=== PATIENT | female | born 1975 | race Caucasian/White ===

== ENCOUNTER 2019-07-12 07:47 | Emergency (ER) | payer SELFPAY ==
[2019-07-12] MEDS ORDERED: NA CHLORIDE 0.9% 1,000 ML ONE (08:15)
[2019-07-12] MEDS ORDERED: ONDANSETRON 4 MG/2 ML VIAL ONE (08:31)
[2019-07-12 08:54] LABS: Absolute Lymphocytes (CBC) 2.2 K/uL (0.7-4.9); Basophils % 1.2 % (0-1.3); Hematocrit 32.6 % (36.0-45.0); Lymphocytes % 46.2 % (15.3-44.8); MPV 8.8 fL (7.6-11.3); RBC Red Blood Cell Count 4.47 M/uL (3.86-4.86)
[2019-07-12 08:57] LABS: Protime INR 0.94
[2019-07-12 09:08] LABS: Urine Blood NEGATIVE (NEG); Urine Glucose NEGATIVE (NEG); Urine Protein NEGATIVE (NEG); Urine pH 6.5 (5.0-7.0)
--- NOTE | 2019-07-12 09:08 | RAD REPORT ---
EXAM DESCRIPTION: CT - Head Brain Wo Cont - 07/12/2019 9:01 am CLINICAL HISTORY: Confused;Seizure Headache, drowsiness COMPARISON: No comparisons TECHNIQUE: All CT scans are performed using dose optimization technique as appropriate and may inclu de automated exposure control or mA/KV adjustment according to patient size. FINDINGS: No intracranial hemorrhage, hydrocephalus or extra-axial fluid collection.No areas of brai n edema or evidence of midline shift. The paranasal sinuses and mastoids are clear. The calvarium is intact. IMPRESSION: No acute intracranial abnormality.
[2019-07-12 09:13] LABS: ALT/SGPT 21 U/L (12-78); AST/SGOT 25 U/L (15-37); Albumin 3.5 g/dL (3.4-5.0); Alkaline Phosphatase 91 U/L (45-117); Amylase Level 55 U/L (25-115); BUN Blood Urea Nitrogen 5 mg/dL (7-18); Bicarbonate 26 mmol/L (21-32); Bilirubin Direct < 0.1 mg/dL (0-0.2); Bilirubin Total 0.2 mg/dL (0.2-1.0); CKMB Creatine Kinase MB < 1.0 ng/mL (0.3-3.6); Creatine Phosphokinase 232 U/L (26-192); Glucose Level 96 mg/dL (74-106); Lipase 172 U/L (73-393); Potassium 3.3 mmol/L (3.5-5.1); Protein, Total 7.5 g/dL (6.4-8.2); Sodium Level 144 mmol/L (136-145); Troponin (Emerg Dept Use Only) < 0.02 ng/mL (0.0-0.045)
[2019-07-12 09:17] LABS: Urine Bacteria <20 /HPF (<20); Urine Culture Reflex Order NOT NEEDED; Urine RBC <5 /HPF (NONE SEEN); Urine Urothelial Cells <5 /HPF (NONE SEEN)
[2019-07-12 09:25] LABS: Barbiturates NEGATIVE (NEGATIVE); Benzodiazepines POSITIVE (NEGATIVE); Cocaine NEGATIVE (NEGATIVE); METHAMPHETAM NEGATIVE (NEGATIVE); Methadone NEGATIVE (NEGATIVE); Opiates NEGATIVE (NEGATIVE); Phencyclidine NEGATIVE (NEGATIVE); THC Cannibis NEGATIVE (NEGATIVE)
--- NOTE | 2019-07-12 09:41 | RAD REPORT ---
EXAM DESCRIPTION: RAD - Chest Single View - 07/12/2019 9:35 am CLINICAL HISTORY: Cough;SOB Chest pain. COMPARISON: No comparisons FINDINGS: Portable technique limits examination quality. The lungs are grossly clear. The heart is normal in size. No displaced fractures. IMPRESSION: No acute intrathoracic process suspected.
[2019-07-12] MEDS ORDERED: HYDROCODONE/APAP 7.5/325 MG TAB ONE (10:12)
[2019-07-12 10:51] LABS: Anisocytosis 3+; Blood Morphology Comment NOTED (NOT SEEN); Hypochromasia 1+; Ovalocytes 1+; Platelet Estimate ADEQ
--- NOTE | 2019-07-12 11:19 | ER ---
Nurse's Notes [facility] Name: Anali Coronado Age: 43 yrs Sex: Female : 1975 Arrival Date: 07/12/2019 Time: 07:53 Bed 15 Private MD: Diagnosis: Alcohol abuse;Alcohol abuse with intoxication;Epilepsy and recurrent seizures Presentation: 07/11 07:54 Chief complaint: EMS states: Witnessed seizure lasting approx 30 seconds, then another hb during transit to ED. Pt reports productive cough, SOB, and fever x 3 days. TMAX 101. Coronavirus screen: Surgical mask placed on patient. Patient moved to private room, placed in contact and droplet isolation with eye protection until further assessment. Patient reports a cough. Patient reports shortness of breath or difficulty breathing. Patient reports a measured and/or subjective temperature greater than 100.4F. Patient reports travel on a cruise ship or to a country [facility] currently lists as an affected area. Patient denies contact with known and/or suspected case of COVID-19. mask placed on patient, Dr. Kirkland notified. Ebola Screen: No symptoms or risks identified at this time. Initial Sepsis Screen: Does the patient meet any 2 criteria? HR > 90 bpm. No. Patient's initial sepsis screen is negative. Does the patient have a suspected source of infection?. Risk Assessment: Do you want to hurt yourself or someone else? Patient reports no desire to harm self or others. Onset of symptoms was July 10, 2019. 07:54 Method Of Arrival: EMS: [facility] hb 07:54 Acuity: SCOTTY 3 hb Historical: - Allergies: 08:02 No Known Allergies; hb - Home Meds: 08:02 Omeprazole Oral [Active]; Digoxin Oral [Active]; Albuterol Inhl [Active]; hb - PMHx: 08:02 Lupus; hb - Immunization history:: Adult Immunizations up to date. - Social history:: Smoking status: Patient denies any tobacco usage or history of. Screenin:00 Abuse screen: Denies threats or abuse. Nutritional screening: No deficits noted. em Tuberculosis screening: No symptoms or risk factors identified. Fall Risk None identified. Assessment: 08:00 General: Appears in no apparent distress. comfortable, well groomed, well developed, em well nourished, Behavior is cooperative, crying, Reports fever for 2-3 days, reports returning back from [place] about 1 week ago, reports she thought it was allergies, also reports she started having seizures after returning, denies hx of seizures, reports cough, shortness of breath, and fever, EMS reports witnessing seizure for about 30 seconds. Pain: Pain: Complains of pain in left side of forehead and left cheek Pain currently is 8 out of 10 on a pain scale. Neuro: Level of Consciousness is awake, alert, obeys commands, Oriented to person, place, time, situation, Appropriate for age. Cardiovascular: Rhythm is sinus rhythm. Respiratory: Reports shortness of breath at rest cough that is Airway is patent Respiratory effort is even, unlabored, Respiratory pattern is regular, symmetrical, Breath sounds are diminished bilaterally. Onset: The symptoms/episode began/occurred 3 days ago. GI: Abdomen is round non-distended, Reports diarrhea, nausea. Derm: Skin is intact, is healthy with good turgor, Skin is pink, warm \T\ dry. Wound noted left side of forehead and left yazdanism and left cheek Wound is abrasions that have scabbed noted, bruising noted to right shoulder and right hip. Musculoskeletal: Capillary refill < 3 seconds, Range of motion: intact in all extremities. 10:11 Reassessment: Patient appears in no apparent distress at this time. request pain em medication for lupus, Dr. Kirkland notified. 11:30 Reassessment: Patient appears in no apparent distress at this time. pt used [employer] ride em assist to get home. Vital Signs: 07:54 BP 138 / 94; Pulse 102; Resp 18; Temp 98(O); Pulse Ox 100% ; Weight 79.38 kg; Height 5 hb ft. 9 in. (175.26 cm); Pain 8/10; 08:41 BP 106 / 82; Pulse 91; Resp 18; Pulse Ox 99% on R/A; Pain 8/10; em 10:28 BP 128 / 90; Pulse 84; Resp 12; Pulse Ox 100% on R/A; em 07:54 Body Mass Index 25.84 (79.38 kg, 175.26 cm) hb ED Course: 07:53 Patient arrived in ED. hb 07:55 Candelario Kirkland MD is Attending Physician. kdr 08:01 Triage completed. hb 08:03 Arm band placed on. hb 08:04 Narciso Alarcon, RN is Primary Nurse. em 08:25 Patient has correct armband on for positive identification. Placed in gown. Bed in low em position. Call light in reach. Side rails up X2. rotary bar operator on. Pulse ox on. NIBP on. 09:06 CT Head Brain wo Cont In Process Unspecified. EDMS 09:36 Chest Single View XRAY In Process Unspecified. EDMS 10:18 IV discontinued, intact, bleeding controlled, Pressure dressing applied. dh3 10:20 Inserted saline lock: 22 gauge in left antecubital area, using aseptic technique. Blood dh3 collected. 10:36 Digoxin Sent. dh3 10:36 ETOH Level Sent. dh3 12:15 No provider procedures requiring assistance completed. IV discontinued, intact, em bleeding controlled, No redness/swelling at site. Pressure dressing applied. Administered Medications: 08:40 Drug: NS 0.9% 1000 ml Route: IV; Rate: 1 bolus; Site: right wrist; em 12:13 Follow up: IV Status: Completed infusion; IV Intake: 1000ml em 08:40 Drug: Zofran (Ondansetron) 4 mg Route: IVP; Site: right wrist; em 10:00 Follow up: Response: No adverse reaction; Marked relief of symptoms; Nausea is decreasedem 10:23 Drug: [place] (7.5 mg-325 mg) 1 tabs Route: PO; em 11:00 Follow up: Response: No adverse reaction; Marked relief of symptoms em Intake: 12:13 IV: 1000ml; Total: 1000ml. em Outcome: 11:18 Discharge ordered by . [facility] 12:15 Discharged to home ambulatory. em 12:15 Condition: good 12:15 Discharge instructions given to patient, Instructed on discharge instructions, follow up and referral plans. medication usage, Demonstrated understanding of instructions, follow-up care, medications, Prescriptions given X 1. 12:19 Patient left the ED. em Signatures: Dispatcher [employer] Candelario Bro MD MD [facility] Narciso Alarcon, RN RN Mercedez Juárez RN RN Andria Ferguson 3
--- NOTE | 2019-07-12 11:19 | EDPHYS ---
Physician Documentation [facility] Name: Anali Coronado Age: 43 yrs Sex: Female : 1975 Arrival Date: 07/12/2019 Time: 07:53 Bed 15 Private MD: ED Physician Candelario Kirkland HPI: 07/11 08:26 This 43 yrs old Female presents to ER via EMS with complaints of Seizure, Flu kdr Symptoms. 08:26 The patient presents with a history of multiple seizures, an unknown number, Apparently kdr last week the patient started to have seizures after returning from [place]. She states that she has had productive cough and SOB. She has not had seizures before. Today, she had several apparent seizures at home and then in route to the hospital with EMS. EMS witnessed on seizure at home and then once in route to the ED. They lasted about 30 seconds and then the patient was mildly postictal. The patient also c/o pain all over. Character of seizure(s): Loss of consciousness: the patient experienced loss of consciousness, Motor activity: generalized, Incontinence: none, Apnea: the patient did not experience apnea. Seizure onset: just prior to arrival, today. Context: the seizure(s) was witnessed, by EMS personnel, occurred at home. Seizure Hx: the patient has no previous seizure history. Associated injury: Head/face: forehead, left ear, left cheek, left anabaptist, left side of forehead and left zygomatic area, abrasion. EMS care: none. Current symptoms: Other than abrasion to face, no obvious injuries. The patient appears mildly uncomfortable and is c/o generalized myalgia. The patient has not experienced similar symptoms in the past. The patient has not recently seen a physician. Historical: - Allergies: 08:02 No Known Allergies; hb - Home Meds: 08:02 Omeprazole Oral [Active]; Digoxin Oral [Active]; Albuterol Inhl [Active]; hb - PMHx: 08:02 Lupus; hb - Immunization history:: Adult Immunizations up to date. - Social history:: Smoking status: Patient denies any tobacco usage or history of. ROS: 08:26 Constitutional: Negative for fever, chills, and weight loss, Eyes: Negative for injury, kdr pain, redness, and discharge, ENT: Negative for injury, pain, and discharge, Neck: Negative for injury, pain, and swelling, Cardiovascular: Negative for chest pain, palpitations, and edema, Abdomen/GI: Negative for abdominal pain, nausea, vomiting, diarrhea, and constipation. 08:26 Respiratory: Positive for cough, with green sputum, dyspnea on exertion, shortness of breath, Negative for hemoptysis, orthopnea, pleurisy, wheezing. 08:26 Skin: Positive for abrasion(s), of the left side of forehead, left anabaptist, left zygomatic area and left cheek. 08:26 MS/Extremity: Negative for injury and deformity, Neuro: Negative for headache, kdr weakness, numbness, tingling, and seizure activity. Psych: Negative for depression, anxiety, suicide ideation, homicidal ideation, and hallucinations, Allergy/Immunology: Negative for hives, rash, and allergies, Endocrine: Negative for neck swelling, polydipsia, polyuria, polyphagia, and marked weight changes, Hematologic/Lymphatic: Negative for swollen nodes, abnormal bleeding, and unusual bruising. 08:26 Neuro: Positive for altered mental status, seizure activity, weakness. Exam: 08:26 Constitutional: This is a well developed, well nourished patient who is awake, alert, kdr and in mild distress. Head/Face: Normocephalic, atraumatic. Eyes: Pupils equal round and reactive to light, extra-ocular motions intact. Lids and lashes normal. Conjunctiva and sclera are non-icteric and not injected. Cornea within normal limits. Periorbital areas with no swelling, redness, or edema. Neck: Trachea midline, no thyromegaly or masses palpated, and no cervical lymphadenopathy. Supple, full range of motion without nuchal rigidity, or vertebral point tenderness. No Meningismus. Chest/axilla: Normal chest wall appearance and motion. Nontender with no deformity. No lesions are appreciated. Cardiovascular: Regular rate and rhythm with a normal S1 and S2. No gallops, murmurs, or rubs. Normal PMI, no JVD. No pulse deficits. Respiratory: Lungs have equal breath sounds bilaterally, clear to auscultation and percussion. No rales, rhonchi or wheezes noted. No increased work of breathing, no retractions or nasal flaring. Abdomen/GI: Soft, non-tender, with normal bowel sounds. No distension or tympany. No guarding or rebound. No evidence of tenderness throughout. Back: No spinal tenderness. No costovertebral tenderness. Full range of motion. MS/ Extremity: Pulses equal, no cyanosis. Neurovascular intact. Full, normal range of motion. Neuro: Awake and alert, GCS 15, oriented to person, place, time, and situation. Cranial nerves II-XII grossly intact. Motor strength 5/5 in all extremities. Sensory grossly intact. Cerebellar exam normal. Normal gait. Psych: Awake, alert, with orientation to person, place and time. Behavior, mood, and affect are within normal limits. Vital Signs: 07:54 BP 138 / 94; Pulse 102; Resp 18; Temp 98(O); Pulse Ox 100% ; Weight 79.38 kg; Height 5 hb ft. 9 in. (175.26 cm); Pain 8/10; 08:41 BP 106 / 82; Pulse 91; Resp 18; Pulse Ox 99% on R/A; Pain 8/10; em 10:28 BP 128 / 90; Pulse 84; Resp 12; Pulse Ox 100% on R/A; em 07:54 Body Mass Index 25.84 (79.38 kg, 175.26 cm) hb MDM: 08:26 Data reviewed: vital signs, nurses notes, lab test result(s), EKG, radiologic studies. kdr Counseling: I had a detailed discussion with the patient and/or guardian regarding: the historical points, exam findings, and any diagnostic results supporting the discharge/admit diagnosis, lab results, radiology results. 11:18 Patient medically screened. [facility] 07/11 08:10 Order name: Amylase, Serum; Complete Time: 09:59 kdr 07/11 08:10 Order name: Basic Metabolic Panel; Complete Time: 09:59 kdr 07/11 08:10 Order name: Blood Culture Adult (2) kdr 07/11 08:10 Order name: CBC with Diff; Complete Time: 11:15 kdr 07/11 08:10 Order name: Ckmb; Complete Time: 09:59 kdr 07/11 08:10 Order name: CPK; Complete Time: 09:59 kdr 07/11 08:10 Order name: Lactate; Complete Time: 09:59 kdr 07/11 08:10 Order name: LFT's; Complete Time: 09:59 kdr 07/11 08:10 Order name: Lipase; Complete Time: 09:59 kdr 07/11 08:10 Order name: Procalcitonin; Complete Time: 09:59 kdr 07/11 08:10 Order name: Protime (+inr); Complete Time: 09:59 kdr 07/11 08:10 Order name: Ptt, Activated; Complete Time: 09:59 kdr 07/11 08:10 Order name: Troponin (emerg Dept Use Only); Complete Time: 09:59 kdr 07/11 08:10 Order name: Urine Microscopic Only; Complete Time: 09:59 kdr 07/11 08:10 Order name: CT Head Brain wo Cont; Complete Time: 09:59 kdr 07/11 08:10 Order name: Chest Single View XRAY; Complete Time: 09:59 kdr 07/11 08:10 Order name: COVID-19; Complete Time: 10:18 kdr 07/11 08:10 Order name: Flu; Complete Time: 09:59 kdr 07/11 08:10 Order name: Strep; Complete Time: 09:59 kdr 07/11 09:03 Order name: UDS; Complete Time: 09:59 em 07/11 09:03 Order name: Urine Dipstick--Ancillary (enter results); Complete Time: 09:59 eb 07/11 09:06 Order name: Throat Culture EDMS 07/11 09:10 Order name: Urine --Ancillary (enter results); Complete Time: 10:18 eb 07/11 09:23 Order name: ETOH Level; Complete Time: 10:47 kdr 07/11 10:02 Order name: Digoxin; Complete Time: 11:15 kdr 07/11 10:43 Order name: Diet Regular; Complete Time: 10:43 dh3 07/11 10:51 Order name: Manual Differential; Complete Time: 11:15 EDMS 07/11 08:10 Order name: Accucheck; Complete Time: 08:59 kdr 07/11 08:10 Order name: Cardiac monitoring; Complete Time: 08:59 kdr 07/11 08:10 Order name: IV Saline Lock - Large Bore; Complete Time: 08:59 kdr 07/11 08:10 Order name: Labs collected and sent; Complete Time: 08:59 kdr 07/11 08:10 Order name: O2 Per Protocol; Complete Time: 08:27 kdr 07/11 08:10 Order name: O2 Sat Monitoring; Complete Time: 08:27 [facility] 07/11 08:10 Order name: Urine Dipstick-Ancillary (obtain specimen); Complete Time: 08:58 [facility] 07/11 08:10 Order name: Droplet/Contact Precautions; Complete Time: 08:27 [facility] 07/11 08:10 Order name: Labs collected and sent; Complete Time: 08:56 [facility] 07/11 08:10 Order name: [facility] [phone]/ ; Complete Time: 08:56 [facility] Administered Medications: 08:40 Drug: NS 0.9% 1000 ml Route: IV; Rate: 1 bolus; Site: right wrist; em 12:13 Follow up: IV Status: Completed infusion; IV Intake: 1000ml em 08:40 Drug: Zofran (Ondansetron) 4 mg Route: IVP; Site: right wrist; em 10:00 Follow up: Response: No adverse reaction; Marked relief of symptoms; Nausea is decreasedem 10:23 Drug: [place] (7.5 mg-325 mg) 1 tabs Route: PO; em 11:00 Follow up: Response: No adverse reaction; Marked relief of symptoms em Disposition: 07/12/19 11:18 Discharged to Home. Impression: Alcohol abuse, Alcohol abuse with intoxication, Epilepsy and recurrent seizures. - Condition is Stable. - Discharge Instructions: Substance Use Disorder, Alcohol Intoxication, [id number], Seizure, Adult, [id number], What You Need to Know About Alcohol Abuse and Dependence, Youth, COVID-19. - Prescriptions for librium - take 1 tablet by ORAL route every 6-8 hours As needed; 20 tablet. - Medication Reconciliation Form, Thank You Letter form. - Follow up: Private Physician; When: 1 - 2 days; Reason: If symptoms return, Further diagnostic work-up, Recheck today's complaints, Continuance of care, Re-evaluation by your physician. - Problem is new. - Symptoms have improved. Signatures: Dispatcher [employer] Candelario Bro MD MD [facility] Narciso Alarcon RN RN Mercedez Juárez RN RN Corrections: (The following items were deleted from the chart) 12:19 11:18 07/12/2019 11:18 Discharged to Home. Impression: Alcohol abuse; Alcohol abuse em with intoxication; Epilepsy and recurrent seizures. Condition is Stable. Forms are Medication Reconciliation Form, Thank You Letter, Antibiotic Education, Prescription Opioid Use. Follow up: Private Physician; When: 1 - 2 days; Reason: If symptoms return, Further diagnostic work-up, Recheck today's complaints, Continuance of care, Re-evaluation by your physician. Problem is new. Symptoms have improved. kdr
[2019-07-12 12:31] VITALS: TEMP 98
[2019-07-12 12:34] VITALS: BP 128/90; O2SAT 100
== END 2019-07-12 12:19 | disposition home or self-care (01) ==
LOC: ER 07:47
DX: F10.129 Alcohol abuse with intoxication, unspecified (principal)
CPT/HCPCS: 36415; 70450; 71045; 80048; 80076; 80162; 80307; 80320; 81003; 81015; 81025; 82150; 82550; 82553; 83605; 83690; 84145; 84484; 85025; 85610; 85730; 87040; 87070; 87081; 87804; 96361; 96374; 99284; J2405; J7030; U0002

== ENCOUNTER 2019-07-22 05:23 | Emergency (ER) | payer SELFPAY ==
[2019-07-22] MEDS ORDERED: NA CHLORIDE 0.9% 2,000 ML ONE (05:51)
[2019-07-22] MEDS ORDERED: D50W 25 GM/50 ML SYRINGE/VIAL IV ONE (06:43)
[2019-07-22 06:59] LABS: Urine Blood NEGATIVE (NEG); Urine Glucose NEGATIVE (NEG); Urine Protein NEGATIVE (NEG); Urine pH 6.5 (5.0-7.0)
[2019-07-22 07:05] LABS: Protime INR 1.04
[2019-07-22 07:07] LABS: Absolute Lymphocytes (CBC) 1.3 K/uL (0.7-4.9); Basophils % 0.9 % (0-1.3); Hematocrit 31.4 % (36.0-45.0); Lymphocytes % 41.1 % (15.3-44.8); MPV 7.7 fL (7.6-11.3); RBC Red Blood Cell Count 4.32 M/uL (3.86-4.86)
[2019-07-22] MEDS ORDERED: FENTANYL CITR 100 MCG/2 ML ONE (07:14)
[2019-07-22 07:15] LABS: ALT/SGPT 19 U/L (12-78); AST/SGOT 27 U/L (15-37); Albumin 3.1 g/dL (3.4-5.0); Alkaline Phosphatase 86 U/L (45-117); BUN Blood Urea Nitrogen 5 mg/dL (7-18); Bicarbonate 24 mmol/L (21-32); Bilirubin Direct 0.2 mg/dL (0-0.2); Bilirubin Total 0.4 mg/dL (0.2-1.0); Ferritin 11.8 ng/mL (8-388); Glucose Level 84 mg/dL (74-106); Lipase 148 U/L (73-393); Potassium 3.1 mmol/L (3.5-5.1); Protein, Total 6.9 g/dL (6.4-8.2); Sodium Level 143 mmol/L (136-145); Troponin (Emerg Dept Use Only) < 0.02 ng/mL (0.0-0.045)
[2019-07-22 07:20] LABS: C-Reactive Protein < 2.90 mg/L (<3.00)
[2019-07-22 07:30] LABS: Urine Bacteria <20 /HPF (<20); Urine Culture Reflex Order NOT NEEDED; Urine RBC <5 /HPF (NONE SEEN)
[2019-07-22] MEDS ORDERED: D5 0.9 NS 1,000 ML IV ONE (07:56)
[2019-07-22] MEDS ORDERED: KCL 20 MEQ/100 mL IVPB 20 MEQ/100 ML BAG IV ONE (07:56)
[2019-07-22] MEDS ORDERED: ENOXAPARIN 40 MG/0.4 ML SQ ONE (07:56)
[2019-07-22 08:47] LABS: Anisocytosis 2+; Blood Morphology Comment NOTED (NOT SEEN); Macrocytosis 1+; Platelet Estimate ADEQ; Urine White Blood Cell Casts OK
--- NOTE | 2019-07-22 08:52 | RAD REPORT ---
EXAM DESCRIPTION: CT - Chest For Pe Angio - 07/22/2019 8:13 am CLINICAL HISTORY: Cough COMPARISON: None. TECHNIQUE: Dynamically enhanced axial 3 mm thick images of the chest were obtained during administra tion of <100> mL Isovue 370 IV contrast. Coronal and oblique reconstruction images were generated and reviewed. Exam utilizes a protocol for optimal evaluation of pulmonary arterial tree. Maximum intensity projections 3D imaging was utilized All CT scans are performed using dose optimization technique as appropriate and may include automated exposure control or mA/KV adjustment according to patient size. FINDINGS: A pulmonary embolus is not seen. A thoracic aortic aneurysm is not noted. A pleural effusion is not seen. A pericardial effusion is not seen. A lung consolidation is not present. Postsurgical changes involve the stomach. The wall of the distal esophagus appears thickened IMPRESSION: Negative for a pulmonary embolism. Wall of the distal esophagus appears thickened which may indicate inflammation
[2019-07-22] MEDS ORDERED: chlordiazePOXIDE HCl 25 MG CAP ONE (09:12)
[2019-07-22] MEDS ORDERED: PANTOPRAZOLE 40 MG INJ ONE (09:13)
--- NOTE | 2019-07-22 09:26 | ER ---
Nurse's Notes [facility] Name: Anali Coronado Age: 43 yrs Sex: Female : 1975 Arrival Date: 07/22/2019 Time: 05:25 Bed 8 Private MD: Diagnosis: Hypoglycemia, unspecified;Hypokalemia;Alcohol abuse with intoxication Presentation: 07/21 05:31 Chief complaint: EMS states: HURTING ALL OVER. SHE WAS SEEN HERE A WEEK AGO. DID NOT rv FEEL BETTER. ALSO COMPLAINING OF CHEST PAIN AND SOB, DESCRIBED ACHING PAIN. Coronavirus screen: Surgical mask placed on patient. Patient moved to private room, placed in contact and droplet isolation with eye protection until further assessment. Patient reports a cough. Patient reports shortness of breath or difficulty breathing. Patient reports a measured and/or subjective temperature greater than 100.4F. Patient reports travel on a cruise ship or to a country the [facility] currently lists as an affected area. Ebola Screen: No symptoms or risks identified at this time. Initial Sepsis Screen: Does the patient meet any 2 criteria? HR > 90 bpm. Does the patient have a suspected source of infection? Yes: Productive cough/pneumonia. Risk Assessment:. Risk Assessment: Do you want to hurt yourself or someone else? Patient reports no desire to harm self or others. Onset of symptoms was July 20, 2019 at 08:00. 05:31 Method Of Arrival: EMS: [facility] 05:31 Acuity: SCOTTY 3 rv Triage Assessment: 05:35 General: Appears ill, Behavior is calm, cooperative. Pain: Complains of pain in ALL rv OVER. EENT: No signs and/or symptoms were reported regarding the EENT system. Neuro: Level of Consciousness is awake, alert, obeys commands, Oriented to person, place, time, situation. Cardiovascular: Patient's skin is warm and dry. Chest pain is described as diffuse, quality is ACHING is located in chest wall. Respiratory: Reports shortness of breath at rest Breath sounds are clear bilaterally. Onset: The symptoms/episode began/occurred gradually, the patient has mild shortness of breath. Derm: Skin is intact. Musculoskeletal: No signs and/or symptoms reported regarding the musculoskeletal system. 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 - Social history:: Smoking status: Patient reports the use of cigarette tobacco products, denies chronic smoking, but will smoke occasionally. Screenin:37 Abuse screen: Denies threats or abuse. Denies injuries from another. Nutritional rv screening: No deficits noted. Tuberculosis screening: No symptoms or risk factors identified. Fall Risk None identified. Assessment: 05:37 Respiratory: Airway is patent Respiratory effort is. rv 05:37 Cardiovascular: Rhythm is sinus tachycardia. rv 07:00 General: Appears in no apparent distress. uncomfortable, Behavior is calm, cooperative, jl7 appropriate for age. Pain: Complains of pain in all over Pain currently is 10 out of 10 on a pain scale. Pain began years ago. Neuro: Level of Consciousness is awake, alert, obeys commands, Oriented to person, place, time, situation. Cardiovascular: Patient's skin is warm and dry. Respiratory: Airway is patent Respiratory effort is even, unlabored, Respiratory pattern is regular, symmetrical. GI: Abdomen is round non-distended. : No signs and/or symptoms were reported regarding the genitourinary system. Derm: Skin is pink, warm \\T\\ dry. 07:45 Reassessment: Pt reports decreased pain, rated 8/10 at this time. jl7 09:00 Reassessment: Pt requesting more pain medication, pt states "The other stuff helped a jl7 whole lot but I'm hurting really bad again." Pain rated 10/10, ERP notified, no new orders at this time. 10:00 Reassessment: Pt confirms her maiden name is Damian, ER registration notified. jl7 10:45 Reassessment: Pt requesting more pain medication, ERP notified, no new orders received. jl7 Pt states "If I can't have any pain medications I don't want to stay." ERP notified. Vital Signs: 05:31 BP 122 / 90; Pulse 105; Resp 18 S; Temp 98.8; Pulse Ox 99% ; Weight 79.38 kg; Height 5 rv ft. 9 in. (175.26 cm); Pain 9/10; 07:00 BP 102 / 59; Pulse 96; Resp 16; Pulse Ox 97% ; sv 08:41 BP 122 / 90; Pulse 90; Resp 18; Pulse Ox 100% ; sv 09:33 BP 129 / 88; Pulse 99; Resp 22; Pulse Ox 100% ; sv 10:38 BP 116 / 85; Pulse 95; Resp 15; Pulse Ox 100% on R/A; sv 05:31 Body Mass Index 25.84 (79.38 kg, 175.26 cm) rv Nina Coma Score: 07:07 Eye Response: spontaneous(4). Verbal Response: oriented(5). Motor Response: obeys rv commands(6). Total: 15. ED Course: 05:25 Patient arrived in ED. ds1 05:31 Hardeep Salgado, BIN is Primary Nurse. rv 05:35 Triage completed. rv 05:35 Arm band placed on Patient placed in the treatment room, on a stretcher, Patient rv notified of wait time. 05:37 Patient has correct armband on for positive identification. Bed in low position. Call rv light in reach. quality assurance monitor final on. Pulse ox on. NIBP on. 06:03 Jacki Chavarria FNP-C is [facility]. snw 06:03 Jose Rafael Mcbride MD is Attending Physician. snw 06:25 Inserted saline lock: 20 gauge in left antecubital area, using aseptic technique. Blood rv collected. 06:25 Initial lab(s) drawn, by me, sent to lab. First set of blood cultures drawn by me. rv 06:45 Second set of blood cultures drawn by me. Missed attempt(s): 20 gauge in right rv antecubital area. 07:08 CXR XRAY In Process Unspecified. EDMS 08:13 CT Chest For PE Angio In Process Unspecified. EDMS 08:45 Inserted saline lock: 24 gauge in right wrist, using aseptic technique. Flushed right sv with 2 ml normal saline. 08:48 Add On-Lab Sent. sv 09:24 Blas Hadley MD is Hospitalizing Provider. snw 11:38 No provider procedures requiring assistance completed. IV discontinued, intact, jl7 bleeding controlled, No redness/swelling at site. Pressure dressing applied. Administered Medications: 06:30 Drug: NS 0.9% 1000 ml Route: IV; Rate: 1 bolus; Site: left antecubital; rv 08:20 Follow up: Response: No adverse reaction; IV Status: Completed infusion; IV Intake: jl7 1000ml 06:45 Drug: D50W 50 ml Route: IVP; Site: left antecubital; rv 08:18 Follow up: Response: Blood sugar is elevated jl7 07:20 Drug: fentaNYL (PF) 50 mcg Route: IVP; Site: left antecubital; jl7 07:40 Follow up: Response: No adverse reaction; Pain is decreased jl7 07:36 CANCELLED (other intervention used): NS 0.9% 2000 ml IV at 1 bolus Per protocol; 1000 snw mL bolus 08:18 Drug: NS 0.9% 1000 ml Route: IV; Rate: 1 bolus; Site: left antecubital; jl7 09:55 Follow up: Response: No adverse reaction; IV Status: Infusion continued upon admission jl7 08:18 Drug: D5-NS 1000 ml Route: IV; Rate: 125 ml/hr; Site: left antecubital; jl7 09:54 Follow up: Response: No adverse reaction; IV Status: Infusion continued upon admission jl7 08:18 Drug: Potassium Chloride 20 mEq Route: IV; Rate: calculated rate; Site: left jl7 antecubital; 09:54 Follow up: Response: No adverse reaction; IV Status: Infusion continued upon admission jl7 10:41 Follow up: Response: No adverse reaction; IV Status: Completed infusion jl7 09:15 Drug: ProTONIX 40 mg Route: IVP; Site: right wrist; jl7 09:30 Follow up: Response: No adverse reaction jl7 09:15 Drug: Librium - chlordiazePOXIDE 50 mg Route: PO; jl7 09:55 Follow up: Response: No adverse reaction jl7 09:20 Drug: Lovenox 40 mg Route: Sub-Q; Site: abdomen; jl7 09:55 Follow up: Response: No adverse reaction jl7 Intake: 08:20 IV: 1000ml; Total: 1000ml. jl7 Outcome: 09:25 Decision to Hospitalize by Provider. snw 10:40 Discharge ordered by . snw 11:38 Discharged to home ambulatory. jl7 11:38 Condition: stable 11:38 Discharge instructions given to patient, Instructed on discharge instructions, follow up and referral plans. Demonstrated understanding of instructions, follow-up care. 11:39 Patient left the ED. jl7 Addendum: 07/24/2019 10:11 Addendum: Other Attempted to contact pt related to negative COVID-19 swab results. d m5 Signatures: Dispatcher [employer] Elza Herman, RN RN dm5 Afsaneh Mas, RN RN sv Jacki Chavarria, ORCHID SUPERINTENDENT-C ORCHID SUPERINTENDENT-Csnw Jaylon, Richa ds1 Elijah Scanlon RN RN jl7 Hardeep Salgado RN RN rv
--- NOTE | 2019-07-22 09:26 | EDPHYS ---
Physician Documentation [facility] Name: Anali Coronado Age: 43 yrs Sex: Female : 1975 Arrival Date: 07/22/2019 Time: 05:25 Bed 8 Private MD: ED Physician Jose Rafael Mcbride HPI: 07/21 06:33 This 43 yrs old Female presents to ER via EMS with complaints of Breathing snw Difficulty. 06:33 The patient has shortness of breath with light activity. Onset: The symptoms/episode snw began/occurred gradually, 1 week(s) ago, and became persistent. Duration: The symptoms are continuous. The patient's shortness of breath is aggravated by light activity. Associated signs and symptoms: Pertinent positives: fatigue. Severity of symptoms: At their worst the symptoms were moderate severe. The patient has not experienced similar symptoms in the past. The patient has not recently seen a physician. has Lupus but is not treated second to cost. 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 - Social history:: Smoking status: Patient reports the use of cigarette tobacco products, denies chronic smoking, but will smoke occasionally. ROS: 06:32 Eyes: Negative for injury, pain, redness, and discharge, ENT: Negative for injury, snw pain, and discharge, Neck: Negative for injury, pain, and swelling. 06:32 Cardiovascular: Negative for chest pain, palpitations, and edema, Respiratory: Negative for shortness of breath, cough, wheezing, and pleuritic chest pain, Abdomen/GI: Negative for abdominal pain, nausea, vomiting, diarrhea, and constipation, Back: Negative for injury and pain, : Negative for injury, bleeding, discharge, and swelling, MS/Extremity: Negative for injury and deformity, Skin: Negative for injury, rash, and discoloration, Neuro: Negative for headache, weakness, numbness, tingling, and seizure, Psych: Negative for depression, anxiety, suicide ideation, homicidal ideation, and hallucinations. 06:32 Constitutional: Positive for body aches, chills, fever, malaise. Exam: 06:31 Head/Face: Normocephalic, atraumatic. Eyes: Pupils equal round and reactive to light, snw extra-ocular motions intact. Lids and lashes normal. Conjunctiva and sclera are non-icteric and not injected. Cornea within normal limits. Periorbital areas with no swelling, redness, or edema. ENT: Nares patent. No nasal discharge, no septal abnormalities noted. Tympanic membranes are normal and external auditory canals are clear. Oropharynx with no redness, swelling, or masses, exudates, or evidence of obstruction, uvula midline. Mucous membranes moist. Neck: Trachea midline, no thyromegaly or masses palpated, and no cervical lymphadenopathy. Supple, full range of motion without nuchal rigidity, or vertebral point tenderness. No Meningismus. Chest/axilla: Normal chest wall appearance and motion. Nontender with no deformity. No lesions are appreciated. 06:31 Abdomen/GI: Soft, non-tender, with normal bowel sounds. No distension or tympany. No guarding or rebound. No evidence of tenderness throughout. Back: No spinal tenderness. No costovertebral tenderness. Full range of motion. Skin: Warm, dry with normal turgor. Normal color with no rashes, no lesions, and no evidence of cellulitis. MS/ Extremity: Pulses equal, no cyanosis. Neurovascular intact. Full, normal range of motion. Neuro: Awake and alert, GCS 15, oriented to person, place, time, and situation. Cranial nerves II-XII grossly intact. Motor strength 5/5 in all extremities. Sensory grossly intact. Cerebellar exam normal. Normal gait. Psych: Awake, alert, with orientation to person, place and time. Behavior, mood, and affect are within normal limits. 06:31 Constitutional: The patient appears awake, listless. 06:31 Cardiovascular: Rate: tachycardic, Heart sounds: normal. 06:31 Respiratory: the patient does not display signs of respiratory distress, Breath sounds: are clear throughout. Vital Signs: 05:31 BP 122 / 90; Pulse 105; Resp 18 S; Temp 98.8; Pulse Ox 99% ; Weight 79.38 kg; Height 5 rv ft. 9 in. (175.26 cm); Pain 9/10; 07:00 BP 102 / 59; Pulse 96; Resp 16; Pulse Ox 97% ; sv 08:41 BP 122 / 90; Pulse 90; Resp 18; Pulse Ox 100% ; sv 09:33 BP 129 / 88; Pulse 99; Resp 22; Pulse Ox 100% ; sv 10:38 BP 116 / 85; Pulse 95; Resp 15; Pulse Ox 100% on R/A; sv 05:31 Body Mass Index 25.84 (79.38 kg, 175.26 cm) rv [employer] Coma Score: 07:07 Eye Response: spontaneous(4). Verbal Response: oriented(5). Motor Response: obeys rv commands(6). Total: 15. MDM: 06:40 Patient medically screened. snw 09:25 Data reviewed: vital signs, nurses notes. Data interpreted: Pulse oximetry: on room air snw is 100 %. Interpretation: normal. Counseling: I had a detailed discussion with the patient and/or guardian regarding: the historical points, exam findings, and any diagnostic results supporting the discharge/admit diagnosis, the presence of at least one elevated blood pressure reading (>120/80) during this emergency department visit, lab results, radiology results, the need for further work-up and treatment in the hospital. Physician consultation: Blas Hadley MD was called at 09:26, regarding admission, to the telemetry unit. 07/21 06:30 Order name: Blood Culture Adult (2) 07/21 06:30 Order name: BMP; Complete Time: 08:32 w 07/21 06:30 Order name: C-Reactive Protein; Complete Time: 08:32 w 07/21 06:30 Order name: CBC with Diff; Complete Time: 08:54 w 07/21 06:30 Order name: COVID-19 07/21 06:30 Order name: D-Dimer; Complete Time: 07:32 snw 07/21 06:30 Order name: Ferritin; Complete Time: 08:32 snw 07/21 06:30 Order name: Flu; Complete Time: 07:32 snw 07/21 06:30 Order name: Lactate; Complete Time: 07:36 snw 07/21 06:30 Order name: LFT's; Complete Time: 08:32 snw 07/21 06:30 Order name: Lipase; Complete Time: 08:32 snw 07/21 06:30 Order name: Procalcitonin; Complete Time: 07:36 snw 07/21 06:30 Order name: PT-INR; Complete Time: 07:32 snw 07/21 06:30 Order name: Strep; Complete Time: 07:32 snw 07/21 06:30 Order name: Troponin (emerg Dept Use Only); Complete Time: 08:32 snw 07/21 06:30 Order name: Urine Microscopic Only; Complete Time: 07:32 snw 07/21 06:31 Order name: CXR XRAY; Complete Time: 09:41 snw 07/21 06:40 Order name: Urine Dipstick--Ancillary (enter results); Complete Time: 07:04 sg 07/21 06:41 Order name: Urine --Ancillary (enter results); Complete Time: 07:04 sg 07/21 06:44 Order name: Glucose, Ancillary Testing; Complete Time: 06:52 EDMS 07/21 06:54 Order name: PTT, Activated Partial Thromb; Complete Time: 07:32 EDMS 07/21 07:26 Order name: Glucose, Ancillary Testing; Complete Time: 07:32 EDMS 07/21 07:29 Order name: Throat Culture ED07/21 07:29 Order name: CBC Smear Scan; Complete Time: 08:54 EDMS 07/21 07:34 Order name: CT Chest For PE Angio; Complete Time: 08:54 snw 07/21 08:05 Order name: Add On-Lab 07/21 08:11 Order name: Digoxin Level; Complete Time: 08:32 EDMS 07/21 08:11 Order name: Alcohol Serum/Plasma; Complete Time: 08:54 EDMS 07/21 10:49 Order name: Glucose, Ancillary Testing; Complete Time: 10:52 EDMS 07/21 06:31 Order name: EKG; Complete Time: 06:32 w 07/21 06:31 Order name: Cardiac monitoring; Complete Time: 06:56 snw 07/21 06:31 Order name: Document PUI#; Complete Time: 06:56 snw 07/21 06:31 Order name: Droplet/Contact Precautions; Complete Time: 06:56 snw 07/21 06:31 Order name: EKG - Nurse/Tech; Complete Time: 06:57 snw 07/21 06:31 Order name: IV Start; Complete Time: 06:57 w 07/21 06:31 Order name: Labs collected and sent; Complete Time: 06:56 snw 07/21 06:31 Order name: [facility] [phone]/ ; Complete Time: 06:56 snw 07/21 06:31 Order name: O2 Per Protocol; Complete Time: 06:56 snw 07/21 06:31 Order name: O2 Sat Monitoring; Complete Time: 06:56 snw 07/21 06:31 Order name: Urine Dipstick-Ancillary (obtain specimen); Complete Time: 06:41 snw 07/21 06:53 Order name: FSBS; Complete Time: 06:55 snw 07/21 10:11 Order name: FSBS; Complete Time: 10:38 snw Administered Medications: 06:30 Drug: NS 0.9% 1000 ml Route: IV; Rate: 1 bolus; Site: left antecubital; rv 08:20 Follow up: Response: No adverse reaction; IV Status: Completed infusion; IV Intake: jl7 1000ml 06:45 Drug: D50W 50 ml Route: IVP; Site: left antecubital; rv 08:18 Follow up: Response: Blood sugar is elevated jl7 07:20 Drug: fentaNYL (PF) 50 mcg Route: IVP; Site: left antecubital; jl7 07:40 Follow up: Response: No adverse reaction; Pain is decreased jl7 07:36 CANCELLED (other intervention used): NS 0.9% 2000 ml IV at 1 bolus Per protocol; 1000 snw mL bolus 08:18 Drug: NS 0.9% 1000 ml Route: IV; Rate: 1 bolus; Site: left antecubital; jl7 09:55 Follow up: Response: No adverse reaction; IV Status: Infusion continued upon admission jl7 08:18 Drug: D5-NS 1000 ml Route: IV; Rate: 125 ml/hr; Site: left antecubital; jl7 09:54 Follow up: Response: No adverse reaction; IV Status: Infusion continued upon admission jl7 08:18 Drug: Potassium Chloride 20 mEq Route: IV; Rate: calculated rate; Site: left jl7 antecubital; 09:54 Follow up: Response: No adverse reaction; IV Status: Infusion continued upon admission jl7 10:41 Follow up: Response: No adverse reaction; IV Status: Completed infusion 09:15 Drug: ProTONIX 40 mg Route: IVP; Site: right wrist; 09:30 Follow up: Response: No adverse reaction 09:15 Drug: Librium - chlordiazePOXIDE 50 mg Route: PO; 09:55 Follow up: Response: No adverse reaction :20 Drug: Lovenox 40 mg Route: Sub-Q; Site: abdomen; 09:55 Follow up: Response: No adverse reaction Disposition: 07/22/19 10:40 Discharged to Home. Impression: Hypoglycemia, unspecified, Hypokalemia, Alcohol abuse with intoxication. - Condition is Stable. - Discharge Instructions: Alcohol Intoxication, Alcohol Withdrawal, Potassium Content of Foods, Hypoglycemia, Alcohol Abuse and Nutrition, Blood Glucose Monitoring, Adult, Hypokalemia, What You Need to Know About Alcohol Abuse and Dependence, Youth. - Medication Reconciliation Form, Thank You Letter, Antibiotic Education, Prescription Opioid Use form. - Follow up: Emergency Department; When: As needed; Reason: Worsening of condition. Follow up: Private Physician; When: 1 - 2 days; Reason: Recheck today's complaints, Continuance of care, Re-evaluation by your physician. Signatures: Dispatcher [employer] EDMS Joslyn Zamorano Shelly, ORCHID HAND-C ORCHID HAND-Csnw Elijah Scanlon, RN RN jl7 Hardeep Salgado RN RN rv Corrections: (The following items were deleted from the chart) 06:53 06:32 PTT, ACTIVATED+COAG.LAB.BRZ ordered. EDFL EDMS 07:05 06:31 Dunn ordered. snw snw 07:36 07:35 NS 0.9% 2000 ml IV at 1 bolus Per protocol; 1000 mL bolus ordered. snw snw 10:37 09:25 Hospitalization Ordered by Blas Hadley MD for Observation. Preliminary snw diagnosis is Hypoglycemia, unspecified; Hypokalemia; Dehydration; Alcohol abuse with intoxication, unspecified. Bed requested for Telemetry/MedSurg (observation). Status is Observation. Condition is Stable. Problem is an acute exacerbation. Symptoms are unchanged. snw 11:39 10:40 07/22/2019 10:40 Discharged to Home. Impression: Hypoglycemia, unspecified; jl7 Hypokalemia; Alcohol abuse with intoxication. Condition is Stable. Forms are Medication Reconciliation Form, Thank You Letter, Antibiotic Education, Prescription Opioid Use. Follow up: Emergency Department; When: As needed; Reason: Worsening of condition. Follow up: Private Physician; When: 1 - 2 days; Reason: Recheck today's complaints, Continuance of care, Re-evaluation by your physician. snw
--- NOTE | 2019-07-22 09:35 | RAD REPORT ---
EXAM DESCRIPTION: Caleb Single View07/22/2019 7:08 am CLINICAL HISTORY: Chest pain COMPARISON: July 12, 2019 FINDINGS: The lungs appear clear of acute infiltrate. The heart is normal size IMPRESSION: No acute abnormalities displayed
[2019-07-22 12:02] VITALS: TEMP 98.8
[2019-07-22 12:05] VITALS: O2SAT 100
[2019-07-22 12:07] VITALS: BP 116/85
--- NOTE | 2019-07-22 20:13 | EKG ---
Test Date: 2019-07-22 Test Time: 05:52:26 Scaler: RV MEASUREMENT RESULTS: Intervals: Rate: 93 WY: 144 QRSD: 88 QT: 362 QTc: 450 [place]: P: 40 WY: 144 QRS: 3 T: 28 INTERPRETIVE STATEMENTS: Normal sinus rhythm Normal ECG No previous ECG available for comparison Electronically Signed On 07-22-19 20:11:02 CDT by Arpan Lewis
== END 2019-07-22 11:39 | disposition home or self-care (01) ==
LOC: ER 05:23
DX: E16.2 Hypoglycemia, unspecified (principal); E87.6 Hypokalemia; F10.129 Alcohol abuse with intoxication, unspecified; Z72.0 Tobacco use
CPT/HCPCS: 36415; 71045; 71275; 80048; 80076; 80162; 80320; 81003; 81015; 81025; 82728; 82947; 83605; 83690; 84145; 84484; 85025; 85379; 85610; 85730; 86140; 87040; 87070; 87081; 87804; 93005; 96361; 96365; 96372; 96375; 99284; C9113; J1650; J3010; J7030; J7042; Q9967

== ENCOUNTER 2019-07-27 15:38 | Inpatient (IN) | payer SELFPAY ==
--- NOTE | 2019-07-27 16:45 | RAD REPORT ---
EXAM DESCRIPTION: Caleb Single View07/27/2019 4:36 pm CLINICAL HISTORY: cough COMPARISON: June 2019 FINDINGS: The lungs appear clear of acute infiltrate. The heart is normal size IMPRESSION: No acute abnormalities displayed
[2019-07-27 17:00] LABS: Absolute Lymphocytes (CBC) 1.1 K/uL (0.7-4.9); Basophils % 0.6 % (0-1.3); Hematocrit 33.2 % (36.0-45.0); Lymphocytes % 17.3 % (15.3-44.8); MPV 8.6 fL (7.6-11.3); RBC Red Blood Cell Count 4.68 M/uL (3.86-4.86)
[2019-07-27 17:11] LABS: Albumin 3.5 g/dL (3.4-5.0); Bilirubin Direct 0.4 mg/dL (0-0.2); Protein, Total 7.3 g/dL (6.4-8.2)
[2019-07-27 17:24] LABS: Platelet Estimate ADEQ; Urine White Blood Cell Casts OK
[2019-07-27 17:25] LABS: Anisocytosis 2+; Blood Morphology Comment NOTED (NOT SEEN)
[2019-07-27 18:47] LABS: Urine Specific Gravity 1.015 (1.005-1.030)
--- NOTE | 2019-07-27 18:47 | RAD REPORT ---
EXAM DESCRIPTION: CT - Abdomen Pelvis W Contrast - 07/27/2019 6:18 pm CLINICAL HISTORY: Abdominal pain COMPARISON: none. TECHNIQUE: Computed axial tomography of the abdomen pelvis was obtained. 100 cc Isovue-300 was admin istered intravenously. Oral contrast was not requested which limits evaluation of bowel. All CT scans are performed using dose optimization technique as appropriate and may include automated exposure control or mA/KV adjustment according to patient size. FINDINGS: Fatty liver. Cholecystectomy Postsurgical changes involve the stomach. Wall of the distal esophagus is thickened. Spleen, pancreas, adrenal and kidneys appear unremarkable. There is no evidence of diverticulitis. IUD in place Wall of most of the colon is mildly thickened IMPRESSION: Wall of the distal esophagus is thickened probably secondary to esophagitis Mild thickening of the wall of the colon likely mild colitis
--- NOTE | 2019-07-27 19:24 | ER ---
Nurse's Notes [facility] Name: Anali Coronado Age: 43 yrs Sex: Female : 1975 Arrival Date: 07/27/2019 Time: 15:41 Bed 2 Private MD: Diagnosis: Nausea and vomiting-intractable;Alcohol dependence with withdrawal, unspecified;Colitis Presentation: 07/26 15:57 Chief complaint: Patient states: has been "detoxing" off alcohol X 2 days, normally iw drinks 3-4 tall boys per day, has had upper abd pain, n/v/d X 2 days, drank today to help with the symptoms, also has hx of pancreatitis, has not eaten in two days. Coronavirus screen: Proceed with normal triage. Patient reports a cough. Patient denies shortness of breath or difficulty breathing. Patient denies measured and/or subjective temperature greater than 100.4F prior to today's visit. Patient denies travel on a cruise ship or to a country the [facility] currently lists as an affected area. Patient denies contact with known and/or suspected case of COVID-19. Ebola Screen: Patient negative for fever greater than or equal to 101.5 degrees Fahrenheit, and additional compatible Ebola Virus Disease symptoms Patient denies exposure to infectious person. Patient denies travel to an Ebola-affected area in the 21 days before illness onset. No symptoms or risks identified at this time. Onset of symptoms was July 25, 2019. 15:57 Method Of Arrival: Wheelchair iw 15:57 Acuity: SCOTTY 3 iw 07/27 16:00 Initial Sepsis Screen: Does the patient meet any 2 criteria? No. Patient's initial iw sepsis screen is negative. Does the patient have a suspected source of infection? No. Patient's initial sepsis screen is negative. Risk Assessment: Do you want to hurt yourself or someone else? Patient reports no desire to harm self or others. Triage Assessment: 07/26 16:30 General: Appears in no apparent distress. Behavior is agitated, anxious. iw Historical: - Allergies: 16:01 Zithromax; iw - Home Meds: 16:01 Omeprazole Oral [Active]; Digoxin Oral [Active]; iw - PMHx: 16:01 Atrial Fib; Lupus; Pancreatitis; Alcoholism; iw - Immunization history:: Adult Immunizations unknown. - Social history:: Smoking status: unknown. Screenin:44 Abuse screen: Denies threats or abuse. Denies injuries from another. ls4 15:44 Nutritional screening: No deficits noted. Tuberculosis screening: No symptoms or risk ls4 factors identified. Fall Risk None identified. Assessment: 16:30 General: Appears uncomfortable, Behavior is agitated, anxious, restless. General: iw Reports feeling ill for fatigue for. Pain: Complains of pain in right upper quadrant and epigastric area. Neuro: Level of Consciousness is awake, alert, obeys commands, Oriented to person, place, time, situation, Moves all extremities. Full function. Cardiovascular: Patient's skin is warm and dry. Respiratory: Respiratory effort is even, unlabored, Respiratory pattern is regular, symmetrical. GI: Abdomen is non-distended, Bowel sounds present X 4 quads. Reports diarrhea, nausea, vomiting. Derm: Skin is intact, is healthy with good turgor. Musculoskeletal: Range of motion: intact in all extremities. 18:40 Reassessment: Patient is alert, oriented x 3, equal unlabored respirations, skin aa5 warm/dry/pink. Vital Signs: 15:57 BP 145 / 102; Pulse 121; Resp 18 S; Temp 98.0(TE); Pulse Ox 98% on R/A; iw 16:39 Pulse 106; iw ED Course: 15:41 Patient arrived in ED. as 15:41 Kathy Varela FNP-C is [facility]. kb 15:41 Raul Koenig MD is Attending Physician. kb 15:44 Tamra Cabral, RN is Primary Nurse. iw 15:44 No provider procedures requiring assistance completed. ls4 15:44 Patient has correct armband on for positive identification. Bed in low position. Call ls4 light in reach. Side rails up X 1. monitor and storage bin tender on. Pulse ox on. NIBP on. Warm blanket given. Pillow given. Verbal reassurance given. Diet: Patient is NPO. 16:00 Triage completed. iw 16:30 Arm band placed on. iw 16:36 Chest Single View XRAY In Process Unspecified. EDMS 18:19 CT Abd/Pelvis - IV Contrast Only In Process Unspecified. EDMS 18:40 22 G to L AC dc'd, swelling noted to site, IV infiltrated during CT scan. aa5 18:42 Missed attempt(s): 24 gauge in right upper arm. Bleeding controlled, band aid applied, aa5 catheter tip intact. 18:45 Inserted saline lock: 22 gauge in right ,using aseptic technique. breast (pt is a hard aa5 stick). 19:22 Pasha Swanson is Hospitalizing Provider. kb Administered Medications: 16:40 Drug: Zofran (Ondansetron) 4 mg Route: IVP; Site: left antecubital; iw 19:52 Follow up: Response: No adverse reaction ls4 16:40 Drug: morphine 4 mg Route: IVP; Site: left antecubital; iw 19:51 Follow up: Response: No adverse reaction ls4 17:02 Drug: Banana Bag - (NS 0.9% 1000 ml, foLIC Acid 1 mg, Thiamine 100 mg, Multivitamin 1 iw amp) Route: IV; Rate: calculated rate; Site: left antecubital; 18:45 Follow up: Infusion continued to Right breast aa5 17:02 Drug: Xopenex (3) 1.25 mg Route: Inhalation; iw 17:02 Drug: AtroVENT Aerosol 0.5 mg Route: Inhalation; iw 18:59 Drug: NS 0.9% 1000 ml Route: IV; Rate: 1000 ml; Site: Other; aa5 18:59 Drug: Ativan 1 mg Route: IVP; Site: Other; aa5 19:51 Follow up: Response: No adverse reaction ls4 19:51 Drug: Potassium Effervescent Tablet 50 mEq Route: PO; ls4 19:51 Drug: Zofran (Ondansetron) 4 mg Route: IVP; Site: left antecubital; ls4 Intake: Outcome: 19:24 Decision to Hospitalize by Provider. kb 22:22 Patient left the ED. lp1 Signatures: Dispatcher [employer] EDMS Kathy Varela, DUSTIN KILGOREP-Phuong Rodriguez Irene, RN RN iw Shelley Wallace RN RN aa5 Cora Braden, RN RN lp1 Denice Yanez, RN RN ls4 Corrections: (The following items were deleted from the chart) 18:21 15:57 BP 145 / 102; Pulse 121bpm; Resp 18bpm; Spontaneous; Pulse Ox 98% RA; iw iw
--- NOTE | 2019-07-27 19:24 | EDPHYS ---
Physician Documentation [facility] Name: Anali Coronado Age: 43 yrs Sex: Female : 1975 Arrival Date: 07/27/2019 Time: 15:41 Bed 2 Private MD: ED Physician Raul Koenig HPI: 07/26 16:11 This 43 yrs old Female presents to ER via Wheelchair with complaints of kb Nausea/Vomiting. 16:11 The patient presents to the emergency department with nausea, vomiting, diarrhea, kb abdominal pain. Onset: The symptoms/episode began/occurred yesterday. Possible causes: "detoxing from alcohol". The symptoms are aggravated by nothing. The symptoms are alleviated by nothing. Associated signs and symptoms: Pertinent positives: abdominal pain, diarrhea, nausea, vomiting, Pertinent negatives: fever. Severity of symptoms: At their worst the symptoms were moderate in the emergency department the symptoms are unchanged. The patient has been recently seen at the [facility] Emergency Department, last week. Pt reports she is having symptoms of detox. States she has been drinking everyday, but trying to detox. States "my pancreas is flaring up." Pt c/o epigastric pain that radiates to back, n/v/d. Historical: - Allergies: 16:01 Zithromax; iw - Home Meds: 16:01 Omeprazole Oral [Active]; Digoxin Oral [Active]; iw - PMHx: 16:01 Atrial Fib; Lupus; Pancreatitis; Alcoholism; iw - Immunization history:: Adult Immunizations unknown. - Social history:: Smoking status: unknown. ROS: 16:10 Constitutional: Negative for fever, chills, and weight loss, Neck: Negative for injury, kb pain, and swelling, Cardiovascular: Negative for chest pain, palpitations, and edema, Respiratory: Negative for shortness of breath, cough, wheezing, and pleuritic chest pain, Back: Negative for injury and pain, MS/Extremity: Negative for injury and deformity, Skin: Negative for injury, rash, and discoloration, Neuro: Negative for headache, weakness, numbness, tingling, and seizure. 16:10 Abdomen/GI: Positive for abdominal pain, nausea, vomiting, and diarrhea, Negative for constipation, abdominal cramps, abdominal distension, anorexia. Exam: 16:10 Constitutional: This is a well developed, well nourished patient who is awake, alert, kb and in no acute distress. Head/Face: Normocephalic, atraumatic. Neck: Trachea midline, no thyromegaly or masses palpated, and no cervical lymphadenopathy. Supple, full range of motion without nuchal rigidity, or vertebral point tenderness. No Meningismus. Chest/axilla: Normal chest wall appearance and motion. Nontender with no deformity. No lesions are appreciated. Cardiovascular: Regular rate and rhythm with a normal S1 and S2. No gallops, murmurs, or rubs. Normal PMI, no JVD. No pulse deficits. Skin: Warm, dry with normal turgor. Normal color with no rashes, no lesions, and no evidence of cellulitis. MS/ Extremity: Pulses equal, no cyanosis. Neurovascular intact. Full, normal range of motion. Neuro: Awake and alert, GCS 15, oriented to person, place, time, and situation. Cranial nerves II-XII grossly intact. Motor strength 5/5 in all extremities. Sensory grossly intact. Cerebellar exam normal. Normal gait. 16:10 Abdomen/GI: Inspection: abdomen appears normal, Bowel sounds: normal, in all quadrants, Palpation: soft, in all quadrants, moderate abdominal tenderness, in the epigastric area and right upper quadrant. 16:13 Respiratory: the patient does not display signs of respiratory distress, Respirations: kb normal, Breath sounds: wheezing: expiratory that is moderate, is heard diffusely. Vital Signs: 15:57 BP 145 / 102; Pulse 121; Resp 18 S; Temp 98.0(TE); Pulse Ox 98% on R/A; iw 16:39 Pulse 106; iw MDM: 15:45 Patient medically screened. kb 16:10 Data reviewed: vital signs, nurses notes. Data interpreted: Pulse oximetry: on room air kb is 98 %. Interpretation: normal. 19:07 Counseling: I had a detailed discussion with the patient and/or guardian regarding: the historical points, exam findings, and any diagnostic results supporting the discharge/admit diagnosis, lab results, radiology results, the need for further work-up and treatment in the hospital. 19:22 Physician consultation: Pasha Swanson was contacted at 19:22, regarding admission, to the telemetry unit. patient's condition, and will see patient in ED, shortly. 07/26 15:55 Order name: Basic Metabolic Panel; Complete Time: 17:12 kb 07/26 15:55 Order name: CBC with Diff; Complete Time: 17:25 kb 07/26 15:55 Order name: Hepatic Function; Complete Time: 17:12 kb 07/26 15:55 Order name: Lipase; Complete Time: 17:12 kb 07/26 15:55 Order name: ETOH Level; Complete Time: 17:12 kb 07/26 15:55 Order name: Chest Single View XRAY; Complete Time: 16:53 kb 07/26 17:13 Order name: CT Abd/Pelvis - IV Contrast Only; Complete Time: 18:52 kb 07/26 17:25 Order name: CBC Smear Scan; Complete Time: 17:25 EDMS 07/26 17:43 Order name: Urine --Ancillary (enter results): test requested by radiology; eb Complete Time: 18:52 07/26 15:55 Order name: IV Saline Lock; Complete Time: 16:38 kb 07/26 15:55 Order name: Labs collected and sent; Complete Time: 17:03 kb Administered Medications: 16:40 Drug: Zofran (Ondansetron) 4 mg Route: IVP; Site: left antecubital; iw 19:52 Follow up: Response: No adverse reaction ls4 16:40 Drug: morphine 4 mg Route: IVP; Site: left antecubital; iw 19:51 Follow up: Response: No adverse reaction ls4 17:02 Drug: Banana Bag - (NS 0.9% 1000 ml, foLIC Acid 1 mg, Thiamine 100 mg, Multivitamin 1 iw amp) Route: IV; Rate: calculated rate; Site: left antecubital; 18:45 Follow up: Infusion continued to Right breast aa5 17:02 Drug: Xopenex (3) 1.25 mg Route: Inhalation; iw 17:02 Drug: AtroVENT Aerosol 0.5 mg Route: Inhalation; iw 18:59 Drug: NS 0.9% 1000 ml Route: IV; Rate: 1000 ml; Site: Other; aa5 18:59 Drug: Ativan 1 mg Route: IVP; Site: Other; aa5 19:51 Follow up: Response: No adverse reaction ls4 19:51 Drug: Potassium Effervescent Tablet 50 mEq Route: PO; ls4 19:51 Drug: Zofran (Ondansetron) 4 mg Route: IVP; Site: left antecubital; ls4 Disposition: 07/27 07:07 Co-signature as Attending Physician, Raul Koenig MD. rn Disposition: 07/27/19 19:24 Hospitalization ordered by Pasha Swanson for Observation. Preliminary diagnosis are Nausea and vomiting - intractable, Alcohol dependence with withdrawal, unspecified, Colitis. - Bed requested for Telemetry/MedSurg (observation). - Status is Observation. lp1 - Condition is Stable. - Problem is new. - Symptoms are unchanged. Signatures: Dispatcher [employer] EDMS Kathy Varela, OPHTHALMIC TECH-C OPHTHALMIC TECH-Ckb Tamra Cabral, Raul Pérez RN, MD MD rn Calderon, Audri, RN RN aa5 Cora Braden RN RN lp1 Tasneem Uribe RN RN cg Stewart, Lisa, RN RN ls4 Corrections: (The following items were deleted from the chart) 07/26 16:13 16:10 Constitutional: This is a well developed, well nourished patient who is awake, kb alert, and in no acute distress. Head/Face: Normocephalic, atraumatic. Neck: Trachea midline, no thyromegaly or masses palpated, and no cervical lymphadenopathy. Supple, full range of motion without nuchal rigidity, or vertebral point tenderness. No Meningismus. Chest/axilla: Normal chest wall appearance and motion. Nontender with no deformity. No lesions are appreciated. Cardiovascular: Regular rate and rhythm with a normal S1 and S2. No gallops, murmurs, or rubs. Normal PMI, no JVD. No pulse deficits. Respiratory: Lungs have equal breath sounds bilaterally, clear to auscultation and percussion. No rales, rhonchi or wheezes noted. No increased work of breathing, no retractions or nasal flaring. Skin: Warm, dry with normal turgor. Normal color with no rashes, no lesions, and no evidence of cellulitis. MS/ Extremity: Pulses equal, no cyanosis. Neurovascular intact. Full, normal range of motion. Neuro: Awake and alert, GCS 15, oriented to person, place, time, and situation. Cranial nerves II-XII grossly intact. Motor strength 5/5 in all extremities. Sensory grossly intact. Cerebellar exam normal. Normal gait. kb 17:41 17:19 TEST, SERUM+SC.LAB.BRZ ordered. EDMS EDMS 21:34 19:24 Hospitalization Ordered by Pasha Swanson for Observation. Preliminary diagnosis cg is Nausea and vomiting - intractable; Alcohol dependence with withdrawal, unspecified; Colitis. Bed requested for Telemetry/MedSurg (observation). Status is Observation. Condition is Stable. Problem is new. Symptoms are unchanged. kb 22:22 21:34 07/27/2019 19:24 Hospitalization Ordered by Pasha Swanson for Observation. lp1 Preliminary diagnosis is Nausea and vomiting - intractable; Alcohol dependence with withdrawal, unspecified; Colitis. Bed requested for Telemetry/MedSurg (observation). Status is Observation. Condition is Stable. Problem is new. Symptoms are unchanged. cg
--- NOTE | 2019-07-27 21:23 | P.HP ---
Certification for Inpatient Patient admitted to: Observation With expected LOS: <2 Midnights Practitioner: I am a practitioner with admitting privileges, knowledge of patient current condition, hospital course, and medical plan of care. Services: Services provided to patient in accordance with Admission requirements found in Title 42 Section 412.3 of the Code of Federal Regulations Patient History Date of Service: 07/27/19 Reason for admission: Nausea and vomiting History of Present Illness: 43-year-old woman with a history of chronic alcoholism, atrial fibrillation and lupus presented to the ED with a complaint of nausea and vomiting and diarrhea. She also reports abdominal pain. She stated she has been trying to detox herself from alcohol. This is her 3rd ED visit over the past couple of weeks for similar complaints including reports of seizures. Her blood work in the ED shows alcohol level of less than 10, hypokalemia and anemia. Patient report that she has not been able to tolerate any food. She was complaining of pain all over. She denies any seizure activity. She is tachycardic. CT abdomen and pelvis done in the ED report colitis. Her lipase level is elevated. She is admitted for further management. - Past Medical/Surgical History -: Alcohol abuse -: Atrial fibrillation -: Lupus - Family History Father -: Other (see notes) (Alcoholic) - Social History Smoking Status: Current every day smoker Alcohol use: Yes CD- Drugs: No Place of Residence: Home Review of Systems Other: Except as documented, all other systems reviewed and negative. Physical Examination - Physical Exam General: Alert, In no apparent distress, Oriented x3 HEENT: Atraumatic, Normocephalic, PERRLA, Mucous membr. moist/pink, EOMI, Sclerae nonicteric Neck: Supple, JVD not distended Respiratory: Clear to auscultation bilaterally, Normal air movement Cardiovascular: No edema, Regular rate/rhythm, Normal S1 S2 Gastrointestinal: Normal bowel sounds, Soft and benign, Non-distended, No tenderness Musculoskeletal: No swelling, No erythema Integumentary: No rashes Neurological: Normal speech, Normal strength at 5/5 x4 extr, Other (Hand tremors) - Studies Laboratory Data (last 24 hrs) 07/27/19 16:40: WBC 6.5 D, Hgb 10.6 L, Hct 33.2 L, Plt Count 115 L D 07/27/19 16:40: Sodium 136, Potassium 3.0 L, BUN 4 L, Creatinine 0.85, Glucose 116 H, Total Bilirubin 1.0, AST 26, ALT 15, Alkaline Phosphatase 97, Lipase 530 H Assessment and Plan - Problems (Diagnosis) (1) Intractable nausea and vomiting Current Visit: Yes Status: Acute (2) Alcohol withdrawal syndrome Current Visit: Yes Status: Acute (3) Sinus tachycardia Current Visit: Yes Status: Acute (4) Anemia Current Visit: Yes Status: Acute (5) Acute pancreatitis Current Visit: Yes Status: Acute (6) Colitis Current Visit: Yes Status: Acute - Plan Admit to the medical floor. Resuscitated with IV normal saline. IV thiamine and folic acid Replete potassium Check magnesium. Initiate CIWA protocol Start IV Zosyn for colitis. Clear liquid diet. Antiemetics Serial lipase. Monitor for seizures. - Advance Directives Does patient have a Living Will: No Does patient have a Durable POA for Healthcare: No
[2019-07-27] MEDS ORDERED: ACETAMINOPHEN 500 MG TAB PO PRN (22:34)
[2019-07-27] MEDS: LORazepam 2 MG/ML VIAL IV SCH (22:34)
[2019-07-27] MEDS ORDERED: FLUMAZENIL 0.1 MG/ML (5 mL VIAL) IV PRN (22:34)
[2019-07-27 22:51] VITALS: BMI 27.6
[2019-07-27] MEDS: MORPHINE 2 MG/ML SYR IV PRN (23:07)
[2019-07-27] MEDS: ONDANSETRON 4 MG/2 ML VIAL IV PRN (23:07)
[2019-07-27] MEDS ORDERED: PIPER/TAZO/NS 3.375gm 6.750 GM/200 ML BAG ONE (23:25)
[2019-07-28] MEDS: PIPER/TAZO/NS 3.375gm 3.375 GM/100 ML BAG IVPB SCH ×3 (01:53→16:49)
[2019-07-28] MEDS: LORazepam 2 MG/ML VIAL IV SCH ×2 (02:02→06:15)
[2019-07-28] MEDS: NA CHLORIDE 0.9% 1,000 ML IV SCH ×3 (02:03→20:26)
[2019-07-28] MEDS: MORPHINE 2 MG/ML SYR IV PRN ×4 (04:07→20:19)
[2019-07-28 05:22] LABS: BUN Blood Urea Nitrogen 4 mg/dL (7-18); Bicarbonate 26 mmol/L (21-32); Glucose Level 91 mg/dL (74-106); HDL Cholesterol 68 mg/dL (40-60); LDL Cholesterol, Calculated 7 (<130); Lipase 331 U/L (73-393); Phosphorus 2.2 mg/dL (2.5-4.9); Sodium Level 138 mmol/L (136-145)
[2019-07-28 05:26] LABS: Magnesium 1.3 mg/dL (1.8-2.4)
[2019-07-28] MEDS ORDERED: Magnesium Sulfate 2gm IVPB 2 G/50 ML BAG IV ONE (05:31)
[2019-07-28] MEDS ORDERED: CALCIUM GLUC 10% INJ 9.3 MEQ in NA CHLORIDE 0.9% 100 ML IV ONE (05:31)
[2019-07-28] MEDS: ONDANSETRON 4 MG/2 ML VIAL IV PRN (06:17)
[2019-07-28 06:18] LABS: Absolute Lymphocytes (CBC) 1.1 K/uL (0.7-4.9); Hematocrit 28.1 % (36.0-45.0); Lymphocytes % 23.8 % (15.3-44.8); MPV 8.8 fL (7.6-11.3); RBC Red Blood Cell Count 3.89 M/uL (3.86-4.86)
[2019-07-28] MEDS: CALCIUM GLUC 10% INJ 4.65 MEQ in NA CHLORIDE 0.9% 100 ML IV SCH ×2 (06:30→09:45)
[2019-07-28] MEDS ORDERED: CALCIUM GLUCONATE 1 GM IVPB 2 GM/100 ML BAG IV ONE (06:34)
[2019-07-28] MEDS ORDERED: POTASSIUM CL SA 10 MEQ TAB PO ONE ×2 (08:00→22:17)
[2019-07-28] MEDS: POTASS/SODIUM PHOSPHATE 1 PKT POWD.PACK PO SCH ×3 (08:23→11:00)
[2019-07-28 08:51] LABS: Platelet Estimate DECR; Urine White Blood Cell Casts OK
[2019-07-28 08:52] LABS: Anisocytosis 3+; Blood Morphology Comment NOTED (NOT SEEN); Poikilocytosis 1+
[2019-07-28] MEDS: FOLIC ACID 1 MG, MULTIVITAMINS INJ 10 ML, THIAMINE HCL 100 MG in NA CHLORIDE 0.9% 1,000 ML IV SCH (09:00)
[2019-07-28] MEDS ORDERED: ENOXAPARIN 40 MG/0.4 ML SQ SCH (09:00)
[2019-07-28] MEDS ORDERED: KCL 20 MEQ/100 mL IVPB 20 MEQ/100 ML BAG IV SCH (09:00)
[2019-07-28] MEDS ORDERED: FOLIC ACID 1 MG, MULTIVITAMINS INJ 10 ML, THIAMINE HCL 100 MG in NA CHLORIDE 0.9% 1,000 ML IV SCH (09:00)
[2019-07-28] MEDS: CALCITROL 0.25 MCG CAP PO SCH (09:56)
[2019-07-28] MEDS: LORazepam 2 MG/ML VIAL IV PRN ×3 (10:20→17:45)
[2019-07-28 10:38] LABS: Urine Appearance CLEAR; Urine Bilirubin NEGATIVE (NEG); Urine Blood NEGATIVE (NEG); Urine Color YELLOW; Urine Glucose NEGATIVE (NEG); Urine Protein NEGATIVE (NEG); Urine Specific Gravity >=1.030 (1.005-1.030); Urine Urobilinogen 0.2 mg/dL (0.2-1.0); Urine pH 6.5 (5.0-7.0)
[2019-07-28 10:40] LABS: Urine Microscopic Reflex NO UMIC
[2019-07-28] MEDS: chlordiazePOXIDE HCl 5 MG CAP PO SCH ×2 (13:43→20:18)
--- NOTE | 2019-07-28 14:22 | PN ---
Date of Progress Note: 07/28/2019 Subjective: Patient seen and examined. Chart reviewed and case discussed with RN. Patient states s he is somewhat jittery, but able to keep her food down. Nausea is improved. Medications: List reviewed. Physical Examination: Vital Signs: Temperature 97.9, heart rate 89, blood pressure 125/73, respirations 18, O2 of 100% on room air. General: Awake, alert, oriented x3. Some mild distress. CV: S1, S2. Regular rate and rhythm. Peripheral pulses present. Respiratory: Moving air well bilaterally. No wheezing. Gastrointestinal: Abdomen is soft, nontender, nondistended. Positive bowel sounds. Extremities: No clubbing, cyanosis, or edema. Neurologic: Nonfocal. Laboratory Data: Sodium 138, potassium 3, chloride 104, CO2 of 26, BUN 4, creatinine 0.71, glucose 9 1, calcium 6.9, phosphorus 2.2, magnesium 1.3. WBC 4.7, H and H 8.7 and 28.1, MCV 72.3, platelets 86 . Imaging Studies: CT scan of the abdomen and pelvis shows wall of the distal esophagus is thickened, probably secondary to esophagitis; non-thickening of wall of the colon, likely mild colitis. Chest x -ray is clear. Assessment: A 43-year-old female with. 1.Intractable nausea and vomiting. Continue antiemetics. 2.Hypophosphatemia. We will replace and monitor. 3.Hypomagnesemia. Replace and monitor. 4.Hypocalcemia. We will replace and monitor. 5.Hypokalemia. Replace. Continue monitoring. 6.Thrombocytopenia and anemia. Avoid any blood thinners, likely related to her chronic alcohol use. 7.Microcytic anemia related to her somewhat dilutional, also likely related to menstruating female. test is negative. 8.Acute alcohol withdrawal. We will continue on Ativan p.r.n. We will switch to Librium taper and adjust dose if necessary. 9.Acute pancreatitis. We will continue with IV fluids. Patient tolerating liquids. We will advanc e as tolerated. Lipase now normal, back to 331, likely secondary to alcohol. 10.Acute colitis and esophagitis. Patient is on Zosyn. Plan: Resume home medications. Librium taper for alcohol withdrawal. Replace electrolytes. Likely discharge in the next 24 to 48 hours. SA/MODL Voice ID: [id number] Report ID: [id number]
[2019-07-29] MEDS: LORazepam 2 MG/ML VIAL IV PRN ×6 (00:22→21:58)
[2019-07-29] MEDS: PIPER/TAZO/NS 3.375gm 3.375 GM/100 ML BAG IVPB SCH ×3 (00:22→17:04)
[2019-07-29] MEDS: MORPHINE 2 MG/ML SYR IV PRN ×2 (02:18→08:19)
[2019-07-29] MEDS: NA CHLORIDE 0.9% 1,000 ML IV SCH ×4 (02:18→21:58)
[2019-07-29] MEDS: PANTOPRAZOLE 40MG TABLET PO SCH (05:34)
[2019-07-29 05:44] LABS: BUN Blood Urea Nitrogen 3 mg/dL (7-18); Bicarbonate 25 mmol/L (21-32); Glucose Level 114 mg/dL (74-106); Magnesium 1.6 mg/dL (1.8-2.4); Potassium 3.6 mmol/L (3.5-5.1); Sodium Level 141 mmol/L (136-145)
[2019-07-29] MEDS ORDERED: MAGNESIUM SULFATE 1 gm IVPB 1 GM/100 ML BAG IV ONE (07:00)
[2019-07-29 07:26] LABS: Absolute Lymphocytes (CBC) 1.2 K/uL (0.7-4.9); Basophils % 1.1 % (0-1.3); Hematocrit 26.7 % (36.0-45.0); Lymphocytes % 35.5 % (15.3-44.8); MPV 8.7 fL (7.6-11.3)
[2019-07-29] MEDS: chlordiazePOXIDE HCl 5 MG CAP PO SCH ×3 (08:17→20:46)
[2019-07-29] MEDS: CALCITROL 0.25 MCG CAP PO SCH (08:18)
[2019-07-29] MEDS: DIGOXIN 0.125 MG TABLET PO SCH (08:18)
[2019-07-29] MEDS ORDERED: POTASSIUM CL SA 10 MEQ TAB PO ONE (09:00)
[2019-07-29] MEDS ORDERED: HOME MED 1 EA UNK (Omeprazole [Prilosec] 40 MG) PO SCH (09:00)
[2019-07-29 09:32] LABS: Anisocytosis 2+; Blood Morphology Comment NOTED (NOT SEEN); Macrocytosis 1+; Platelet Estimate DECR
[2019-07-29] MEDS: FOLIC ACID 1 MG, MULTIVITAMINS INJ 10 ML, THIAMINE HCL 100 MG in NA CHLORIDE 0.9% 1,000 ML IV SCH (10:06)
[2019-07-29 11:43] LABS: Bilirubin Direct 0.2 mg/dL (0-0.2); Bilirubin Total 0.4 mg/dL (0.2-1.0); Ferritin 27.7 ng/mL (8-388)
[2019-07-29 11:45] LABS: RBC Red Blood Cell Count 3.67 M/uL (3.86-4.86)
[2019-07-29] MEDS: HYDROCODONE/APAP 7.5/325 MG TAB PO PRN ×3 (12:57→20:46)
[2019-07-29] MEDS: HYOSCYAMINE SULF 0.125 MG TAB PO ONE ×2 (12:57→12:58)
--- NOTE | 2019-07-29 14:14 | PN ---
Date of Progress Note: 07/29/2019 Subjective: Patient seen and examined. Chart reviewed and case discussed with RN and Dr. Steward. Patient wanted different types of food, not really able to find anything palatable on the soft diet. Patient feeling very anxious today. Medications: List reviewed. Physical Examination: Vital Signs: Temperature 98.1, heart rate 82, blood pressure 151/83, respirations 16, O2 of 100% on room air. General: Awake, alert, oriented x3, in some mild distress due to anxiety, tearful. CV: S1, S2. Regular rate and rhythm. Peripheral pulses present. Respiratory: Moving air well bilaterally. No wheezing. Gastrointestinal: Abdomen is soft, nontender, nondistended. Positive bowel sounds. Extremities: No clubbing, cyanosis, or edema. Neurologic: Nonfocal. Psychiatric: Patient's mood is anxious. Affect is congruent with mood. Insight and judgment are fair. Laboratory Data: Sodium 141, potassium 3.6, chloride 108, CO2 of 25, BUN 3, creatinine 0.7, glucose 114, calcium 7.7, phosphorus 3, magnesium 1.6. WBC 3.4, H and H of 8.3 and 26.7, platelets 76, neutrophils 52. Assessment: A 43-year-old female with: 1. Intractable nausea and vomiting, improving. Continue antiemetics. Patient is able to tolerate a soft diet. We will advance. 2. Hypophosphatemia, replaced. We will continue to monitor. 3. Hypomagnesemia. Replace and monitor. 4. Hypocalcemia, improving. We will continue Rocaltrol and monitor. 5. Hypokalemia, replaced. We will continue with BMP in a.m. 6. Thrombocytopenia and anemia. No chemical anticoagulation as her platelet levels were normal less than a month ago and continues to drop in the absence of any heparin. I have consulted Dr. Steward, legal intern on-call, who recommended further workup including LDH, total bilirubin, direct bilirubin, and iron panel. We will also check peripheral blood smear and Williams test. May be related to her alcohol. Does not have any splenomegaly. Patient does have lupus which may explain the low platelets. 7. History of systemic lupus. 8. Acute pancreatitis, resolved. Tolerating p.o. diet. We will adjust IV fluids. Likely secondary to alcohol. 9. Acute alcohol withdrawal. We will continue with Librium taper. Patient is now on 5 mg t.i.d. We will switch to 5 mg daily in a.m. Monitor for signs of withdrawal. Use Ativan p.r.n. for uncontrolled symptoms. 10. Microcytic anemia. We will continue to monitor and transfuse as needed. 11. Acute colitis and esophagitis. Continue Zosyn. 12. Deep vein thrombosis prophylaxis. SCDs only. No chemical anticoagulation due to thrombocytopenia. 13. Generalize anxiety disorder. Consult psych. Plan: Continue Librium taper. Thrombocytopenia workup. Likely discharge in next 24 hours depending on clinical improvement. Counseled regarding alcohol cessation. /FRANCO Voice ID: [id number] Report ID: [id number]
[2019-07-29] MEDS ORDERED: LORazepam 2 MG/ML VIAL IV SCH (22:00)
[2019-07-30] MEDS: PIPER/TAZO/NS 3.375gm 3.375 GM/100 ML BAG IVPB SCH ×2 (00:17→09:09)
[2019-07-30] MEDS: HYDROCODONE/APAP 7.5/325 MG TAB PO PRN ×6 (00:41→21:46)
[2019-07-30] MEDS: LORazepam 2 MG/ML VIAL IV PRN ×5 (03:56→21:45)
[2019-07-30] MEDS: NA CHLORIDE 0.9% 1,000 ML IV SCH ×2 (04:00→06:05)
[2019-07-30 05:57] LABS: BUN Blood Urea Nitrogen 4 mg/dL (7-18); Bicarbonate 25 mmol/L (21-32); Glucose Level 83 mg/dL (74-106); Magnesium 1.9 mg/dL (1.8-2.4); Potassium 3.8 mmol/L (3.5-5.1); Sodium Level 140 mmol/L (136-145)
[2019-07-30] MEDS ORDERED: POTASSIUM CL SA 10 MEQ TAB PO ONE (06:03)
[2019-07-30] MEDS: PANTOPRAZOLE 40MG TABLET PO SCH (06:05)
[2019-07-30 07:58] LABS: Absolute Lymphocytes (CBC) 1.2 K/uL (0.7-4.9); Basophils % 0.8 % (0-1.3); Hematocrit 24.6 % (36.0-45.0); Lymphocytes % 54.8 % (15.3-44.8); MPV 9.6 fL (7.6-11.3); RBC Red Blood Cell Count 3.31 M/uL (3.86-4.86)
[2019-07-30 08:24] VITALS: O2SAT 98
[2019-07-30 08:45] LABS: Anisocytosis 2+; Blood Morphology Comment NOTED (NOT SEEN); Macrocytosis 1+; Platelet Estimate DECR
[2019-07-30] MEDS: DIGOXIN 0.125 MG TABLET PO SCH (09:08)
[2019-07-30] MEDS: FOLIC ACID 1 MG, MULTIVITAMINS INJ 10 ML, THIAMINE HCL 100 MG in NA CHLORIDE 0.9% 1,000 ML IV SCH (09:09)
[2019-07-30] MEDS: CALCITROL 0.25 MCG CAP PO SCH (09:09)
[2019-07-30] MEDS ORDERED: SODIUM CHLORIDE 0.9% 10ML INJ IV PRN (09:14)
[2019-07-30] MEDS: chlordiazePOXIDE HCl 5 MG CAP PO SCH (09:18)
--- NOTE | 2019-07-30 09:24 | P.PN ---
Subjective Date of Service: 07/30/19 Primary Care Provider: Dr. Sangeeta Brito([place], [place]) Chief Complaint: Nausea and vomiting Subjective: Other (Patient with some fatigue. Less nausea vomiting. No significant abdominal pain. Patient tolerating diet.) Physical Examination - Vital Signs Temperature: 97.0 F Blood Pressure: 116/78 Pulse: 78 Respirations: 16 Pulse Ox (%): 98 - Physical Exam General: Alert, Cooperative HEENT: Atraumatic Neck: Supple Respiratory: Clear to auscultation bilaterally, Normal air movement Cardiovascular: Normal pulses, Regular rate/rhythm Gastrointestinal: Normal bowel sounds, Soft and benign, Non-distended, No tenderness, No masses, No rebound, No guarding Integumentary: No tenderness/swelling, No erythema, No warmth, No cyanosis Neurological: Normal speech, Normal strength at 5/5 x4 extr, Normal tone, Normal affect - Studies Medications List Reviewed: Yes Assessment & Plan Discharge Plan: Home Plan to discharge in: 24 Hours Physician Review Additional Text: Impression: Intractable nausea and vomiting secondary to acute pancreatitis Acute anemia suspect upper GI bleed/gastritis/esophagitis with underlying iron deficiency anemia Thrombocytopenia likely related to alcohol use versus lupus verses other History of lupus Acute alcohol withdrawal Generalized anxiety disorder Plan: Intractable nausea and vomiting secondary to acute pancreatitis: Nausea and vomiting improved. Lipase level within normal range. Patient tolerating current diet. Patient with noted acute anemia. Underlying iron deficiency noted. Suspect upper GI bleed versus gastritis/esophagitis. Will monitor hemoglobin closely. Patient may require transfusion if hemoglobin below 7.5. Will change diet to clear liquid. Will discuss with GI. Patient will likely require EGD for further evaluation. Will increase Protonix to IV b.i.d.. Will continue to monitor closely. Will discuss with hematology. Need to verify home medications. Patient taking digoxin for unknown reason. Will verify. Will discontinue at this time until this is further determined. Anticipate discharge in the next 1-2 days. Acute anemia suspect upper GI bleed/gastritis/esophagitis with underlying iron deficiency anemia: GI consulted. Will monitor hemoglobin. Patient may require transfusion if hemoglobin below 7.5. Will start IV iron. Continue with Protonix IV twice daily. Thrombocytopenia likely related to alcohol use versus lupus verses other: Thrombocytopenia likely related to alcohol use. Patient with underlying lupus. She has not followed up with Rheumatology. Case discussed with hematology. Will monitor closely. History of lupus: Patient does not have rheumatology at this time. Recommend rheumatology evaluation as an outpatient and follow up once she returns to [place], [place]. Acute alcohol withdrawal: Patient with increased fatigue likely multifactorial. Will monitor hemoglobin. Patient may require transfusion. No evidence of alcohol withdrawal this time. Will discontinue Librium. Will provide benzodiazepine as needed. Encourage ambulation. Alcohol cessation education provided. Generalized anxiety disorder: Will monitor closely. Time Spent Managing Pts Care (In Minutes): 55
[2019-07-30] MEDS: ONDANSETRON 4 MG/2 ML VIAL IV PRN (09:41)
[2019-07-30] MEDS: NACHLORIDE 0.45% 1,000 ML IV SCH ×2 (09:44→20:35)
[2019-07-30] MEDS: SOD FERRIC GLUC COMPLX/SUCROSE 125 MG in NA CHLORIDE 0.9% 100 ML IV SCH (10:47)
[2019-07-30 13:28] LABS: Hematocrit 24.9 % (36.0-45.0)
[2019-07-30 20:27] LABS: Hematocrit 27.4 % (36.0-45.0)
[2019-07-30] MEDS: PANTOPRAZOLE 40 MG INJ IVP SCH (20:33)
[2019-07-31 01:26] VITALS: TEMP 97.9
[2019-07-31] MEDS: HYDROCODONE/APAP 7.5/325 MG TAB PO PRN ×4 (02:18→14:13)
[2019-07-31] MEDS: LORazepam 2 MG/ML VIAL IV PRN ×4 (02:18→15:19)
[2019-07-31 04:32] LABS: Absolute Lymphocytes (CBC) 1.3 K/uL (0.7-4.9); Basophils % 0.7 % (0-1.3); Hematocrit 25.1 % (36.0-45.0); Lymphocytes % 58.9 % (15.3-44.8); MPV 9.4 fL (7.6-11.3); RBC Red Blood Cell Count 3.37 M/uL (3.86-4.86)
[2019-07-31 04:42] LABS: BUN Blood Urea Nitrogen 3 mg/dL (7-18); Bicarbonate 25 mmol/L (21-32); Glucose Level 79 mg/dL (74-106); Potassium 3.5 mmol/L (3.5-5.1); Sodium Level 141 mmol/L (136-145)
[2019-07-31] MEDS: NACHLORIDE 0.45% 1,000 ML IV SCH (05:54)
[2019-07-31] MEDS ORDERED: KCL 20 MEQ/100 mL IVPB 20 MEQ/100 ML BAG IV SCH (06:00)
--- NOTE | 2019-07-31 07:09 | P.PN ---
Date of Service: 07/31/19 Spoke with nursing staff regarding patient's labs. Advise him to notify Hematology this a.m.. Reticulocyte count is 0.04 and thrombocytopenia has worsened. Hemoglobin remains down to 7.8. With inappropriate response from bone marrow on likely for hemoglobin ago up without EPO therapy or blood transfusion. Await Hematology recommendation.
[2019-07-31] MEDS: SOD FERRIC GLUC COMPLX/SUCROSE 125 MG in NA CHLORIDE 0.9% 100 ML IV SCH (08:34)
[2019-07-31] MEDS: FOLIC ACID 1 MG, MULTIVITAMINS INJ 10 ML, THIAMINE HCL 100 MG in NA CHLORIDE 0.9% 1,000 ML IV SCH (08:35)
[2019-07-31] MEDS: PANTOPRAZOLE 40 MG INJ IVP SCH (08:39)
[2019-07-31] MEDS: CALCITROL 0.25 MCG CAP PO SCH (08:39)
--- NOTE | 2019-07-31 10:18 | P.CNS ---
Date of Consult: 07/31/19 (Hematology) Patient seen and examined this morning at 9.15am. REASON FOR CONSULTATION: Pancytopenia HPI: Patient with H/o chronic alcoholism admitted with s/s of alcohol withdrawal found to have colitis, esophagitis and ? pancreatitis. She received antibiotics during the course of hospital stay. No recent exposure of heparin products. Reports one episode of black stools. Prior EGD and colonoscopy apparently in her 30's when she was evaluated for possible IBS. H/o lupus (diagnosed in [place]) but has not been on treatment nor seen a Nnp. Reports aches and pains in the joints usually. Denies ever having a severe flare. H/o gastric sleeve in 2013. Never had an IV iron transfusion nor been on B12 supplements. No rash, fevers, chills, night sweats, loss of weight or appetite. Clinically she seems to show improvement and feels better. - Past Medical/Surgical History -: Alcohol abuse -: Atrial fibrillation -: Lupus - Family History Father -: Other (see notes) (Alcoholic) - Social History Smoking Status: Current every day smoker Alcohol use: Yes CD- Drugs: No Place of Residence: Home Review of Systems Other: Except as documented, all other systems reviewed and negative. Physical Examination General: Alert, In no apparent distress, Oriented x3 HEENT: Atraumatic, Normocephalic, PERRLA, Mucous membr. moist/pink, EOMI, Sclerae nonicteric Neck: Supple, JVD not distended Respiratory: Clear to auscultation bilaterally, Normal air movement Cardiovascular: No edema, Regular rate/rhythm, Normal S1 S2 Gastrointestinal: Normal bowel sounds, Soft and benign, Non-distended, No tenderness Musculoskeletal: No swelling, No erythema Integumentary: No rashes Neurological: Normal speech, Normal strength at 5/5 x4 extr Laboratory Data WBC 6.5 D, Hgb 10.6 L, Hct 33.2 L, Plt Count 115 L D on day of admission BUN 4 L, Creatinine 0.85, Glucose 116 H, Total Bilirubin 1.0, AST 26, ALT 15, Alkaline Phosphatase 97, Lipase 530 H Lab trend reviewed with cbc as low as 2.2>7.8< 40 iron 23/7%sats/ ferritin 27 Retc it 0.01/ 0.23% coags normal Fibrinogen 312 Smear reviewed- in chart CBC- 2.5>9.3< 48 Imaging reviewed. Problems: 1. Anemia 2. Leucopenia 3. Thrombocytopenoa 4. Alcohol abuse 5. Lupus Impression: Etiology of pancytopenia seem to be multifactorial- element of myelosuppression secondary to recent acute alcohol binge, autoimmune phenomenon, infection/inflammation, medications, severe iron deficiency. Current labs seem to show evidence of marrow recuperation. Anemia Microcytic with severe iron deficiency and showing improvement in Hb with ongoing IV iron replacement therapy Leucopenia: ANC showing an upward trend. Needs monitoring and further work up depending on the trend. No intervention needed at this time Thrombocytopenia: Also multifactorial- alcoholism, infection/ inflammation, auto immune/ITP, medications etc. No evidence of DIC or TTP. No intervention at this time. Single donor platelets can be given if she needs to undergo any procedures like EGD. A trial of steroids can be considered as treatment for ITP if plt count < 30,000 Plan/ recommendations: C/w IV therapy to replenish stores. Check B12/ folate. Will need parenteral replacement if B12 < 500 She was educated on periodical parenteral replacement to avoid deficiency. Basic work up for pancytopenia including Hep B,C, HIV panel, autoimmune markers, etc ordered. Monitor cbc. In the event of inadequate improvement in blood counts or worsening counts inspite of improvement iron and B12 and acute insults resolved, will then consider further work up including a bone marrow biopsy. D/w Dr Serrano- Pt apparently going to be discharged today. In the event of discharge, recommend she either come to our clinic or to her pcp for a cbc check in 2-3 days. Also follow up with a filter washer and presser as outpatient either here or at [facility] in 1-2 weeks.
[2019-07-31 10:33] VITALS: BP 134/76
[2019-07-31 12:26] LABS: Anisocytosis 3+; Blood Morphology Comment NOTED (NOT SEEN); Macrocytosis 2+; Platelet Estimate DECR; Poikilocytosis 1+; Polychromasia 2+
[2019-07-31 13:12] LABS: Absolute Lymphocytes (CBC) 1.3 K/uL (0.7-4.9); Basophils % 0.7 % (0-1.3); Hematocrit 29.7 % (36.0-45.0); Lymphocytes % 53.2 % (15.3-44.8); MPV 8.7 fL (7.6-11.3); RBC Red Blood Cell Count 3.99 M/uL (3.86-4.86)
[2019-07-31 13:23] LABS: RBC Red Blood Cell Count 3.95 M/uL (3.86-4.86)
[2019-07-31 13:30] LABS: Protime INR 0.91
--- NOTE | 2019-07-31 14:57 | P.DS ---
Admission Date: 07/27/19 Discharge Date: 07/31/19 Primary Care Provider: Dr. Sangeeta Brito([place], [place]) Disposition: ROUTINE DISCHARGE Discharge Condition: GOOD Reason for Admission: Nausea and vomiting Consultations: GI-Dr. Byrd Hematology-Dr. Steward [facility]-Dr. Machado Procedures: CT scan: FINDINGS: Fatty liver. Cholecystectomy Postsurgical changes involve the stomach. Wall of the distal esophagus is thickened. Spleen, pancreas, adrenal and kidneys appear unremarkable. There is no evidence of diverticulitis. IUD in place Wall of most of the colon is mildly thickened IMPRESSION: Wall of the distal esophagus is thickened probably secondary to esophagitis Mild thickening of the wall of the colon likely mild colitis Medical Problem List: Intractable nausea and vomiting secondary to acute alcoholic pancreatitis Acute anemia suspect related to esophagitis/gastritis with underlying severe chronic iron deficiency anemia Thrombocytopenia likely multifactorial Leukopenia likely multifactorial Hypokalemia related to nausea and vomiting History of lupus Alcohol abuse with mild alcohol withdrawal Generalized anxiety disorder Brief History of Present Illness: 43-year-old female with history of lupus, GERD with prior gastric bypass and chronic alcoholism. Patient presented with nausea and vomiting. She had been seen in the ER multiple times. She was found to have pancreatitis with possible esophagitis/colitis. Patient admitted for further evaluation. Hospital Course: Patient presented with intractable nausea and vomiting. She had been seen in the ER for multiple times. Patient found to have elevated lipase indicative of acute alcoholic pancreatitis. Patient with history of chronic alcohol abuse. CT scan showed esophagitis and possible colitis. Patient also found to have electrolyte abnormalities including hypokalemia. Patient was admitted for further evaluation and treatment. Patient given IV fluids with improvement. Patient further noted to have pancytopenia. During the course of her stay ernst suarez was seen by GI and Hematology. Her nausea vomiting resolved. Pancreatitis also resolved. Her pancytopenia was likely related to her pancreatitis. Patient found to be severely chronically iron deficient. Patient was given IV iron with improvement. There was some consideration for a EGD but due to her pancytopenia this was not done. No rectal bleeding noted. Hemoglobin has remained stable and improved at 9.5. Patient did not require any transfusion. White count also improved. Leukopenia likely multifactorial [place] well. This also has shown improvement. At discharge, hematology recommends that the patient follow up with a hematology in [place], [place] where she is from. Recommend to recheck lab-CBC and CMP in 1 week to monitor progress. Patient will likely require IV iron supplementation as an outpatient. This can be done with the help of her PCP or Hematology. Will also recommend patient follow up with GI as an outpatient to further evaluate. Patient will likely require EGD and colonoscopy to further evaluate her anemia. At discharge lab for autoimmune, hepatitis, and other etiologies have been sent. This can be followed up by her PCP. At discharge will recommend patient to continue with iron 325 mg twice daily and Protonix 40 mg daily. Patient with underlying history of lupus. She has not followed up with Rheumatology in quite some time due to lack of insurance. Recommendations for the patient to follow up with Rheumatology within 1 month to further evaluate. Hematology obtain lab to confirm this. This can be followed up by her PCP. Patient has generalized anxiety. Patient was seen by psychiatry. Psychiatry recommends benzodiazepine for short period. She can be further evaluated by psychiatry in the near future to further address. Patient reports history of taking digoxin as needed. It is unclear why she is taking this. I will recommend to discontinue digoxin. This may need to be further evaluated with cardiology consultation. No evidence of atrial fibrillation during the course of her stay. Vital Signs/Physical Exam: Temp Pulse Resp BP Pulse Ox 97.9 F 62 18 134/76 97 07/31/19 08:00 07/31/19 08:00 07/31/19 14:13 07/31/19 08:00 07/31/19 14:13 General: Alert, In no apparent distress, Oriented x3, Cooperative HEENT: Atraumatic Neck: Supple Respiratory: Clear to auscultation bilaterally, Normal air movement Cardiovascular: Normal pulses, Regular rate/rhythm Gastrointestinal: Normal bowel sounds, Soft and benign, Non-distended, No tenderness, No masses, No rebound, No guarding Musculoskeletal: No erythema, No tenderness, No warmth Integumentary: No tenderness/swelling, No erythema, No warmth, No cyanosis Neurological: Normal speech, Normal strength at 5/5 x4 extr, Normal tone, Normal affect Laboratory Data at Discharge: WBC 2.5 K/uL (4.3-10.9) L 07/31/19 12:10 Hgb 9.2 g/dL (12.0-15.0) L 07/31/19 12:10 Hct 29.7 % (36.0-45.0) L D 07/31/19 12:10 Plt Count 48 K/uL (152-406) L* 07/31/19 12:10 PT 10.8 SECONDS (9.5-12.5) 07/31/19 12:10 INR 0.91 07/31/19 12:10 APTT 32.0 SECONDS (24.3-36.9) 07/31/19 12:10 Sodium 141 mmol/L (136-145) 07/31/19 04:12 Potassium 3.5 mmol/L (3.5-5.1) 07/31/19 04:12 BUN 3 mg/dL (7-18) L 07/31/19 04:12 Creatinine 0.59 mg/dL (0.55-1.3) 07/31/19 04:12 Glucose 79 mg/dL (74-106) 07/31/19 04:12 Phosphorus 4.0 mg/dL (2.5-4.9) 07/30/19 05:05 Magnesium 1.9 mg/dL (1.8-2.4) 07/30/19 05:05 Total Bilirubin 0.4 mg/dL (0.2-1.0) 07/29/19 11:17 AST 26 U/L (15-37) 07/27/19 16:40 ALT 15 U/L (12-78) 07/27/19 16:40 Alkaline Phosphatase 97 U/L (45-117) 07/27/19 16:40 Triglycerides 78 mg/dL (<150) 07/28/19 04:30 Cholesterol 91 mg/dL (<200) 07/28/19 04:30 HDL Cholesterol 68 mg/dL (40-60) H 07/28/19 04:30 Cholesterol/HDL Ratio 1.34 07/28/19 04:30 Lipase 331 U/L (73-393) 07/28/19 04:30 Home Medications: Ferrous Sulfate [Iron] 325 mg PO BID #60 tablet 07/31/19 Pantoprazole [Protonix Tab] 40 mg PO DAILY #30 tab 07/31/19 New Medications: Ferrous Sulfate [Iron] 325 mg PO BID #60 tablet Pantoprazole [Protonix Tab] 40 mg PO DAILY #30 tab Patient Discharge Instructions: 1. Recommend follow up with her PCP in 1 week to follow up this hospitalization. 2. Patient presented with intractable nausea and vomiting. She had been seen in the ER for multiple times. Patient found to have elevated lipase indicative of acute alcoholic pancreatitis. Patient with history of chronic alcohol abuse. CT scan showed esophagitis and possible colitis. Patient also found to have electrolyte abnormalities including hypokalemia. Patient was admitted for further evaluation and treatment. Patient given IV fluids with improvement. Patient further noted to have pancytopenia. During the course of her stay patient was seen by GI and Hematology. Her nausea vomiting resolved. Pancreatitis also resolved. Her pancytopenia was likely related to her pancreatitis. Patient found to be severely chronically iron deficient. Patient was given IV iron with improvement. There was some consideration for a EGD but due to her pancytopenia this was not done. No rectal bleeding noted. Hemoglobin has remained stable and improved at 9.5. Patient did not require any transfusion. White count also improved. Leukopenia likely multifactorial [place] well. This also has shown improvement. At discharge, hematology recommends that the patient follow up with a hematology in [place], [place] where she is from. Recommend to recheck lab-CBC and CMP in 1 week to monitor progress. Patient will likely require IV iron supplementation as an outpatient. This can be done with the help of her PCP or Hematology. Will also recommend patient follow up with GI as an outpatient to further evaluate. Patient will likely require EGD and colonoscopy to further evaluate her anemia. At discharge lab for autoimmune, hepatitis, and other etiologies have been sent. This can be followed up by her PCP. At discharge will recommend patient to continue with iron 325 mg twice daily and Protonix 40 mg daily. 3. Patient with underlying history of lupus. She has not followed up with Rheumatology in quite some time due to lack of insurance. Recommendations for the patient to follow up with Rheumatology within 1 month to further evaluate. Hematology obtain lab to confirm this. This can be followed up by her PCP. 4. Patient has generalized anxiety. Patient was seen by psychiatry. Psychiatry recommends benzodiazepine for short period. She can be further evaluated by psychiatry in the near future to further address. 5. Patient reports history of taking digoxin as needed. It is unclear why she is taking this. I will recommend to discontinue digoxin. This may need to be further evaluated with cardiology consultation. No evidence of atrial fibrillation during the course of her stay. Diet: AHA Activity: Ad dominguez Time spent managing pt's care (in minutes): 55
== END 2019-07-31 15:48 | disposition home or self-care (01) | DRG 439 ==
LOC: ER 15:38 → ERHOLD 21:49 → 2ND 22:04
PROVIDERS: ADMIT Internal Medicine; ATTEND Family Medicine
DX: K85.20 Alcohol induced acute pancreatitis without necrosis or infection (principal); F10.239 Alcohol dependence with withdrawal, unspecified; D61.818 Other pancytopenia; D72.819 Decreased white blood cell count, unspecified; D50.9 Iron deficiency anemia, unspecified; E87.6 Hypokalemia; F41.1 Generalized anxiety disorder; K21.9 Gastro-esophageal reflux disease without esophagitis; F17.200 Nicotine dependence, unspecified, uncomplicated; K29.70 Gastritis, unspecified, without bleeding; K20.9 Esophagitis, unspecified; M32.9 Systemic lupus erythematosus, unspecified; E83.39 Other disorders of phosphorus metabolism; E83.42 Hypomagnesemia; E83.51 Hypocalcemia; K52.9 Noninfective gastroenteritis and colitis, unspecified; R00.0 Tachycardia, unspecified; Z79.899 Other long term (current) drug therapy; Z98.84 Bariatric surgery status
CPT/HCPCS: 36415; 71045; 74177; 80048; 80061; 80076; 80320; 81003; 81025; 82247; 82248; 82728; 83540; 83615; 83690; 83735; 84100; 84132; 84466; 85014; 85018; 85025; 85044; 85384; 85610; 85730; 86880; 87389; 94760; 99285; C9113; J0610; J2270; J2405; J2543; J2916; J3411; J3475; J7030; Q9967

== ENCOUNTER 2019-08-05 17:36 | Emergency (ER) | payer OTHER, SELFPAY ==
--- NOTE | 2019-08-05 18:38 | RAD REPORT ---
EXAM DESCRIPTION: CT - Head Brain Wo Cont - 08/05/2019 6:26 pm CLINICAL HISTORY: Seizure COMPARISON: June 2019 TECHNIQUE: Computed axial tomography of the head was obtained. IV contrast was not requested. All CT scans are performed using dose optimization technique as appropriate and may include automated exposure control or mA/KV adjustment according to patient size. FINDINGS: An intracranial bleed is not seen . The ventricles are normal in caliber. No extra-axial fluid collection is noted. Fluid within the sinuses/ mastoids is not seen. IMPRESSION: No acute intracranial abnormality is seen. If patient's symptoms persist MRI of the bra in would be recommended.
[2019-08-05] MEDS ORDERED: MORPHINE 2 MG/ML SYR ONE ×2 (19:38→20:07)
[2019-08-05] MEDS ORDERED: NA CHLORIDE 0.9% 1,000 ML ONE (19:38)
[2019-08-05] MEDS ORDERED: ONDANSETRON 4 MG/2 ML VIAL ONE (19:38)
[2019-08-05 19:41] LABS: Absolute Lymphocytes (CBC) 1.6 K/uL (0.7-4.9); Basophils % 1.4 % (0-1.3); Hematocrit 32.7 % (36.0-45.0); Lymphocytes % 49.1 % (15.3-44.8); MPV 8.8 fL (7.6-11.3); RBC Red Blood Cell Count 4.34 M/uL (3.86-4.86)
[2019-08-05 19:45] LABS: Protime INR 1.14
[2019-08-05 19:54] LABS: ALT/SGPT 17 U/L (12-78); AST/SGOT 23 U/L (15-37); Alkaline Phosphatase 82 U/L (45-117); BUN Blood Urea Nitrogen 4 mg/dL (7-18); Bicarbonate 26 mmol/L (21-32); Bilirubin Direct 0.1 mg/dL (0-0.2); Bilirubin Total 0.3 mg/dL (0.2-1.0); Glucose Level 89 mg/dL (74-106); Potassium 3.6 mmol/L (3.5-5.1); Protein, Total 6.5 g/dL (6.4-8.2); Sodium Level 143 mmol/L (136-145)
[2019-08-05] MEDS ORDERED: THIAMINE 200 MG/2 ML INJ ONE (20:19)
[2019-08-05] MEDS ORDERED: MULTIVITAMINS 10 ML VIAL (INJ) IV ONE (20:19)
[2019-08-05] MEDS ORDERED: FOLIC ACID 5 MG/ML VIAL ONE (20:22)
--- NOTE | 2019-08-05 20:34 | ER ---
Nurse's Notes [facility] Name: Anali Coronado Age: 43 yrs Sex: Female : 1975 Arrival Date: 08/05/2019 Time: 17:37 Bed 25 Private MD: Diagnosis: Myalgia;Alcohol abuse with intoxication;Weakness Presentation: 08/04 18:10 Chief complaint: EMS states: were toned out foe seizure, pt was on floor closing her iw eyes when EMS arrived, pt states she had multiple seizures today and has pain all over, EMS report no seizure activity, pt intermittently will close her eyes and say she feels like she is having a seizure. Coronavirus screen: Proceed with normal triage. Patient denies a cough. Patient denies shortness of breath or difficulty breathing. Patient denies measured and/or subjective temperature greater than 100.4F prior to today's visit. Patient denies travel on a cruise ship or to a country the [facility] currently lists as an affected area. Patient denies contact with known and/or suspected case of COVID-19. 18:10 Method Of Arrival: EMS: [facility] iw 18:10 Acuity: SCOTTY 3 iw 22:00 Risk Assessment: Do you want to hurt yourself or someone else? Patient reports no [facility] desire to harm self or others. Onset of symptoms was August 02, 2019. 22:01 Ebola Screen: Patient denies travel to an Ebola-affected area in the 21 days before 1 illness onset. Initial Sepsis Screen: Does the patient meet any 2 criteria? No. Patient's initial sepsis screen is negative. Does the patient have a suspected source of infection? No. Patient's initial sepsis screen is negative. 22:01 Onset of symptoms is unknown. ll1 08/05 00:25 Onset of symptoms is unknown. [facility] Triage Assessment: 08/04 22:01 General: Appears uncomfortable, Behavior is calm, cooperative, appropriate for age. 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 - Social history:: Smoking status: unknown. Screenin:50 Abuse screen: Denies threats or abuse. Denies injuries from another. Nutritional iw screening: No deficits noted. Tuberculosis screening: No symptoms or risk factors identified. Fall Risk None identified. Assessment: 18:15 General: Appears in no apparent distress. Behavior is calm, cooperative. Pain: iw Complains of pain in pain all over. Neuro: Level of Consciousness is awake, alert, obeys commands, Oriented to person, place, time, situation, Moves all extremities. Full function. Cardiovascular: Patient's skin is warm and dry. Respiratory: Respiratory effort is even, unlabored, Respiratory pattern is regular, symmetrical. GI: Abdomen is flat, non-distended. : No signs and/or symptoms were reported regarding the genitourinary system. Derm: Skin is intact, is healthy with good turgor. Musculoskeletal: Range of motion: intact in all extremities. 19:10 Reassessment: No changes from previously documented assessment. Patient and/or family ll1 updated on plan of care and expected duration. Pain level reassessed. Patient is alert, oriented x 3, equal unlabored respirations, skin warm/dry/pink. 20:10 Reassessment: No changes from previously documented assessment. Patient and/or family ll1 updated on plan of care and expected duration. Pain level reassessed. Patient is alert, oriented x 3, equal unlabored respirations, skin warm/dry/pink. 21:10 Reassessment: No changes from previously documented assessment. Patient and/or family ll1 updated on plan of care and expected duration. Pain level reassessed. Patient is alert, oriented x 3, equal unlabored respirations, skin warm/dry/pink. Patient states symptoms have not improved. No vomiting after PO challenge.. Vital Signs: 18:09 BP 125 / 104; Pulse 90; Resp 16; Temp 98.4; Pulse Ox 95% on R/A; iw 21:19 BP 109 / 72; Pulse 80; Resp 18; Pulse Ox 96% ; Pain 9/10; ll1 [place] Coma Score: 22:01 Eye Response: spontaneous(4). Verbal Response: oriented(5). Motor Response: obeys ll1 commands(6). Total: 15. ED Course: 17:37 Patient arrived in ED. iw 17:52 Kathy Varela [facility]-C [facility] kb 17:52 Art Allen MD is Attending Physician. kb 18:09 Tamra Cabral, BIN is Primary Nurse. iw 18:13 Triage completed. iw 18:26 CT Head Brain wo Cont In Process Unspecified. EDMS 18:55 No provider procedures requiring assistance completed. Missed attempt(s): 22 gauge in iw left breast. Bleeding controlled, band aid applied, catheter tip intact. 21:59 Arm band placed on. ll1 22:00 Patient has correct armband on for positive identification. Bed in low position. Call ll1 light in reach. Side rails up X 1. 22:01 IV discontinued, intact, bleeding controlled, No redness/swelling at site. Pressure ll1 dressing applied. 22:01 Seizure precautions initiated. ll1 Administered Medications: 19:40 Drug: morphine 2 mg Route: IVP; Site: right wrist; ll1 19:40 Drug: Zofran (Ondansetron) 4 mg Route: IVP; Site: right wrist; ll1 22:03 Follow up: Response: No adverse reaction; RASS: Alert and Calm (0) ll1 19:41 Drug: NS 0.9% 1000 ml Route: IV; Rate: 1000 ml; Site: right wrist; ll1 20:00 Follow up: Response: No adverse reaction; IV Status: Order to discontinue infusion; IV ll1 Intake: 500ml 20:27 Drug: morphine 2 mg Route: IVP; Site: right wrist; ll1 22:02 Follow up: Response: No adverse reaction; Pain is decreased; RASS: Alert and Calm (0) ll1 20:27 Drug: Banana Bag - (NS 0.9% 1000 ml, foLIC Acid 1 mg, Thiamine 100 mg, Multivitamin 1 ll1 amp) Route: IV; Rate: calculated rate; Site: right wrist; 22:02 Follow up: Response: No adverse reaction; RASS: Alert and Calm (0); IV Status: Order to ll1 discontinue infusion; IV Intake: 500ml Intake: 20:00 IV: 500ml; Total: 500ml. ll1 22:02 IV: 500ml; Total: 1000ml. ll1 Outcome: 20:33 Discharge ordered by . kb 21:25 Patient left the ED. ll1 21:25 Discharged to home ambulatory. ll1 21:25 Condition: stable 21:25 Discharge instructions given to patient, Instructed on discharge instructions, follow up and referral plans. Demonstrated understanding of instructions, follow-up care. Signatures: Dispatcher [employer] Kathy Werner, HAND STRIPER-C HAND STRIPER-Tamra Interiano, RN RN iw Jamie Garcia RN RN ll1
--- NOTE | 2019-08-05 20:34 | EDPHYS ---
Physician Documentation [facility] Name: Anali Coronado Age: 43 yrs Sex: Female : 1975 Arrival Date: 08/05/2019 Time: 17:37 Bed 25 Private MD: Art Noel HPI: 08/04 21:07 This 43 yrs old Female presents to ER via EMS with complaints of Probable kb Seizure. 21:07 The patient presents with a history of multiple seizures. Character of seizure(s): Loss kb of consciousness: the patient did not lose consciousness, Motor activity: the motor activity is unknown, Incontinence: none, Apnea: the patient did not experience apnea. Seizure onset: today. Context: the seizure(s) was witnessed, by family, occurred at home. Seizure Hx: Original onset: longstanding, Cause: alcohol abuse history. Associated injury: The patient did not suffer any apparent associated injury. EMS care: none. Current symptoms: Currently, the patient is not experiencing any symptoms, the patient feels back to baseline, no decreased level of consciousness, no confusion, no dysphasia, no headache, no paralysis, no visual changes. The patient has experienced similar episodes in the past. The patient has been recently been admitted at [facility], was discharged last week. Pt reports she thinks she had 3 seizures today. Reports she has also had body aches, nausea and vomiting. EMS reports she told them she felt like she was having a seizure when she was laying on the stretcher with her eyes closed.. 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 - Social history:: Smoking status: unknown. ROS: 21:05 ENT: Negative for injury, pain, and discharge, Neck: Negative for injury, pain, and kb swelling, Cardiovascular: Negative for chest pain, palpitations, and edema, Respiratory: Negative for shortness of breath, cough, wheezing, and pleuritic chest pain, Back: Negative for injury and pain, MS/Extremity: Negative for injury and deformity, Skin: Negative for injury, rash, and discoloration. 21:05 Constitutional: Positive for body aches, Negative for chills, fatigue, fever, malaise, poor PO intake, weight loss. 21:05 Abdomen/GI: Positive for nausea and vomiting, Negative for abdominal pain, diarrhea, constipation. 21:05 Neuro: Positive for seizure activity. Exam: 21:06 Constitutional: This is a well developed, well nourished patient who is awake, alert, kb and in no acute distress. Head/Face: Normocephalic, atraumatic. Eyes: Pupils equal round and reactive to light, extra-ocular motions intact. Lids and lashes normal. Conjunctiva and sclera are non-icteric and not injected. Cornea within normal limits. Periorbital areas with no swelling, redness, or edema. Chest/axilla: Normal chest wall appearance and motion. Nontender with no deformity. No lesions are appreciated. Cardiovascular: Regular rate and rhythm with a normal S1 and S2. No gallops, murmurs, or rubs. Normal PMI, no JVD. No pulse deficits. Respiratory: Lungs have equal breath sounds bilaterally, clear to auscultation and percussion. No rales, rhonchi or wheezes noted. No increased work of breathing, no retractions or nasal flaring. Abdomen/GI: Soft, non-tender, with normal bowel sounds. No distension or tympany. No guarding or rebound. No evidence of tenderness throughout. Skin: Warm, dry with normal turgor. Normal color with no rashes, no lesions, and no evidence of cellulitis. MS/ Extremity: Pulses equal, no cyanosis. Neurovascular intact. Full, normal range of motion. Neuro: Awake and alert, GCS 15, oriented to person, place, time, and situation. Cranial nerves II-XII grossly intact. Motor strength 5/5 in all extremities. Sensory grossly intact. Cerebellar exam normal. Normal gait. Vital Signs: 18:09 BP 125 / 104; Pulse 90; Resp 16; Temp 98.4; Pulse Ox 95% on R/A; iw 21:19 BP 109 / 72; Pulse 80; Resp 18; Pulse Ox 96% ; Pain 9/10; ll1 Nina Coma Score: 22:01 Eye Response: spontaneous(4). Verbal Response: oriented(5). Motor Response: obeys ll1 commands(6). Total: 15. MDM: 17:52 Patient medically screened. kb 21:06 Data reviewed: vital signs, nurses notes. Data interpreted: Pulse oximetry: on room air kb is 95 %. Interpretation: normal. Counseling: I had a detailed discussion with the patient and/or guardian regarding: the historical points, exam findings, and any diagnostic results supporting the discharge/admit diagnosis, lab results, radiology results, the need for outpatient follow up, a family practitioner, a neurologist, to return to the emergency department if symptoms worsen or persist or if there are any questions or concerns that arise at home. 21:18 ED course: Pt discharged to responsible adult. Pt sober appearing when she walked out kb of Ed. . 08/04 18:10 Order name: Acetaminophen; Complete Time: 20:02 kb 08/04 18:10 Order name: Basic Metabolic Panel; Complete Time: 20:02 kb 08/04 18:10 Order name: CBC with Diff kb 08/04 18:10 Order name: ETOH Level; Complete Time: 20:02 kb 08/04 18:10 Order name: Hepatic Function; Complete Time: 20:02 kb 08/04 18:10 Order name: PT-INR; Complete Time: 19:50 kb 08/04 18:10 Order name: Ptt, Activated; Complete Time: 19:50 kb 08/04 18:10 Order name: Salicylate; Complete Time: 20:20 kb 08/04 18:10 Order name: CT Head Brain wo Cont; Complete Time: 18:44 kb 08/04 19:51 Order name: CBC Smear Scan EDMS 08/04 20:04 Order name: Lipase; Complete Time: 20:20 ar5 08/04 18:10 Order name: EKG; Complete Time: 18:11 kb 08/04 18:10 Order name: EKG - Nurse/Tech; Complete Time: 19:35 kb 08/04 18:10 Order name: IV Saline Lock; Complete Time: 19:35 kb 08/04 18:10 Order name: Labs collected and sent; Complete Time: 19:35 kb 08/04 20:21 Order name: PO challenge; Complete Time: 20:40 kb Administered Medications: 19:40 Drug: morphine 2 mg Route: IVP; Site: right wrist; ll1 19:40 Drug: Zofran (Ondansetron) 4 mg Route: IVP; Site: right wrist; ll1 22:03 Follow up: Response: No adverse reaction; RASS: Alert and Calm (0) ll1 19:41 Drug: NS 0.9% 1000 ml Route: IV; Rate: 1000 ml; Site: right wrist; ll1 20:00 Follow up: Response: No adverse reaction; IV Status: Order to discontinue infusion; IV ll1 Intake: 500ml 20:27 Drug: morphine 2 mg Route: IVP; Site: right wrist; ll1 22:02 Follow up: Response: No adverse reaction; Pain is decreased; RASS: Alert and Calm (0) ll1 20:27 Drug: Banana Bag - (NS 0.9% 1000 ml, foLIC Acid 1 mg, Thiamine 100 mg, Multivitamin 1 ll1 amp) Route: IV; Rate: calculated rate; Site: right wrist; 22:02 Follow up: Response: No adverse reaction; RASS: Alert and Calm (0); IV Status: Order to ll1 discontinue infusion; IV Intake: 500ml Disposition: 08/05/19 20:33 Discharged to Home. Impression: Myalgia, Alcohol abuse with intoxication, Weakness. - Condition is Stable. - Discharge Instructions: Musculoskeletal Pain, Alcohol Intoxication, [id number], Weakness, [id number]. - Medication Reconciliation Form, Thank You Letter, Antibiotic Education, Prescription Opioid Use form. - Follow up: Emergency Department; When: As needed; Reason: Worsening of condition. Follow up: Private Physician; When: 2 - 3 days; Reason: Recheck today's complaints, Continuance of care, Re-evaluation by your physician. Addendum: 08/07/2019 09:43 Co-signature as Attending Physician, Art Allen MD I agree with the assessment and c chery plan of care. Signatures: Dispatcher [employer] Kathy Werner, SUJATHA-Ashvin KILGOREP-Art Morris MD MD cha Williams, Irene, RN BIN iw Jamie Garcia RN RN ll1 Corrections: (The following items were deleted from the chart) 08/04 21:06 21:06 Counseling: I had a detailed discussion with the patient and/or guardian kb regarding: the historical points, exam findings, and any diagnostic results supporting the discharge/admit diagnosis, lab results, radiology results, the need for outpatient follow up, a family practitioner, to return to the emergency department if symptoms worsen or persist or if there are any questions or concerns that arise at home, kb 21:10 21:07 Pt reports she thinks she had 3 seizures today. Reports she has also had body kb aches, nausea and vomiting. States she . kb 21:25 20:33 08/05/2019 20:33 Discharged to Home. Impression: Myalgia; Alcohol abuse with ll1 intoxication; Weakness. Condition is Stable. Forms are Medication Reconciliation Form, Thank You Letter, Antibiotic Education, Prescription Opioid Use. Follow up: Emergency Department; When: As needed; Reason: Worsening of condition. Follow up: Private Physician; When: 2 - 3 days; Reason: Recheck today's complaints, Continuance of care, Re-evaluation by your physician. kb
[2019-08-05 21:29] VITALS: TEMP 98.4
[2019-08-05 21:31] VITALS: BP 109/72; O2SAT 96
[2019-08-05 21:54] LABS: Blood Morphology Comment NOTED (NOT SEEN)
[2019-08-05 21:55] LABS: Anisocytosis 3+; Hypochromasia 2+; Platelet Estimate ADEQ
[2019-08-05 21:56] LABS: Urine White Blood Cell Casts OK
--- NOTE | 2019-08-06 07:20 | EKG ---
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
== END 2019-08-05 21:25 | disposition home or self-care (01) ==
LOC: ER 17:36
DX: F10.229 Alcohol dependence with intoxication, unspecified (principal); R53.1 Weakness; I48.91 Unspecified atrial fibrillation; Z88.1 Allergy status to other antibiotic agents
CPT/HCPCS: 36415; 70450; 80048; 80076; 80320; 80329; 83690; 85025; 85610; 85730; 93005; 96365; 96366; 96375; 99283; J2270; J2405; J3411; J7030

== ENCOUNTER 2019-08-10 08:43 | Emergency (ER) | payer SELFPAY ==
[2019-08-10 09:55] LABS: Absolute Lymphocytes (CBC) 1.1 K/uL (0.7-4.9); Basophils % 0.8 % (0-1.3); Hematocrit 36.1 % (36.0-45.0); Lymphocytes % 18.9 % (15.3-44.8); MPV 8.7 fL (7.6-11.3); RBC Red Blood Cell Count 4.84 M/uL (3.86-4.86)
[2019-08-10 10:00] LABS: Protime INR 1.16
[2019-08-10 10:32] LABS: ALT/SGPT 26 U/L (12-78); AST/SGOT 43 U/L (15-37); Albumin 3.2 g/dL (3.4-5.0); Alkaline Phosphatase 156 U/L (45-117); BUN Blood Urea Nitrogen 4 mg/dL (7-18); Bicarbonate 25 mmol/L (21-32); Bilirubin Direct 0.2 mg/dL (0-0.2); Bilirubin Total 0.5 mg/dL (0.2-1.0); Glucose Level 130 mg/dL (74-106); Lipase 598 U/L (73-393); Protein, Total 7.1 g/dL (6.4-8.2); Sodium Level 137 mmol/L (136-145)
--- NOTE | 2019-08-10 10:47 | RAD REPORT ---
EXAM DESCRIPTION: RAD - Chest Single View - 08/10/2019 9:44 am CLINICAL HISTORY: CHEST PAIN TECHNIQUE: AP portable chest image was obtained 08/10/2019 9:44 am . FINDINGS: Lungs are clear. A few small granulomatous type densities are present matching comparison. Mediastinal and hilar regions also without suspicious finding. Heart and vasculature are normal. No measurable pleural effusion and no pneumothorax. No acute bony abnormality seen. No acute aortic find ings suspected. IMPRESSION: No acute cardiopulmonary process. No suspicious change from comparison.
[2019-08-10] MEDS ORDERED: FOLIC ACID 1 MG, MULTIVITAMINS INJ 10 ML, THIAMINE HCL 100 MG in NA CHLORIDE 0.9% 1,000 ML IV ONE (11:00)
[2019-08-10] MEDS ORDERED: PANTOPRAZOLE 40 MG INJ ONE (11:20)
[2019-08-10] MEDS ORDERED: DICYCLOMINE HCL 10 MG CAP ONE (11:20)
[2019-08-10 11:23] LABS: Anisocytosis 2+; Blood Morphology Comment NOTED (NOT SEEN); Platelet Estimate ADEQ; Urine White Blood Cell Casts OK
[2019-08-10 11:24] LABS: Poikilocytosis 1+
[2019-08-10] MEDS ORDERED: PROMETHAZINE INJ 25 MG/ML AMP ONE ×2 (11:48→13:57)
[2019-08-10] MEDS ORDERED: POTASSIUM 25 MEQ EFFERV TAB ONE (11:48)
[2019-08-10] MEDS ORDERED: NA CHLORIDE 0.9% 1,000 ML ONE (12:11)
[2019-08-10] MEDS ORDERED: ACETAMINOPHEN 500 MG TAB ONE (12:51)
--- NOTE | 2019-08-10 13:02 | ER ---
Nurse's Notes [facility] Name: Anali Coronado Age: 43 yrs Sex: Female : 1975 Arrival Date: 08/10/2019 Time: 08:44 Bed 6 Private MD: Diagnosis: Alcohol abuse with intoxication, unspecified;Hypokalemia;Vomiting Presentation: 08/09 08:57 Chief complaint: Patient states: vomiting and diarrhea, can't eat since she was here iw last X 1 week ago, also stopped drinking yesterday, normally drinks beer usually two tall boys daily. Coronavirus screen: Proceed with normal triage. Patient denies a cough. Patient reports shortness of breath or difficulty breathing. Patient denies measured and/or subjective temperature greater than 100.4F prior to today's visit. Patient denies travel on a cruise ship or to a country the [facility] currently lists as an affected area. Patient denies contact with known and/or suspected case of COVID-19. Ebola Screen: Patient negative for fever greater than or equal to 101.5 degrees Fahrenheit, and additional compatible Ebola Virus Disease symptoms Patient denies exposure to infectious person. Patient denies travel to an Ebola-affected area in the 21 days before illness onset. No symptoms or risks identified at this time. 08:57 Method Of Arrival: Wheelchair 08:57 Acuity: SCOTTY 3 08:58 Initial Sepsis Screen: Does the patient meet any 2 criteria? HR > 90 bpm. Does the iw patient have a suspected source of infection? No. Patient's initial sepsis screen is negative. Risk Assessment: Do you want to hurt yourself or someone else? Patient reports no desire to harm self or others. Onset of symptoms was August 05, 2019. Triage Assessment: 09:00 General: Appears in no apparent distress. comfortable, Behavior is cooperative, bp appropriate for age, anxious. Pain: Complains of pain in abdomen. EENT: No deficits noted. Neuro: No deficits noted. Cardiovascular: Rhythm is sinus tachycardia. Respiratory: No deficits noted. GI: Reports nausea, vomiting. : No signs and/or symptoms were reported regarding the genitourinary system. Derm: No deficits noted. Musculoskeletal: No deficits noted. 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 - Social history:: Smoking status: Patient reports the use of cigarette tobacco products, smokes one-half pack cigarettes per day. Screenin:00 Abuse screen: Denies threats or abuse. Denies injuries from another. Nutritional bp screening: No deficits noted. Tuberculosis screening: No symptoms or risk factors identified. Fall Risk None identified. Assessment: 10:21 Reassessment: Patient appears in no apparent distress at this time. Patient and/or rb1 family updated on plan of care and expected duration. Pain level reassessed. Patient is alert, oriented x 3, equal unlabored respirations, skin warm/dry/pink. Pt. requested pain medication, BIN Vieira notified. 11:06 Reassessment: UNABLE TO OBTAIN SECONDARY PIV FOR ADDITIONAL MEDICATIONS. bp 12:09 Reassessment: PIV INFILTRATED. NEW PIV PLACED R ANKLE. bp 13:00 Reassessment: D/C ON HOLD FOR IVF COMPLETION. bp 14:46 Reassessment: PT D/C HOME VIA W/C, DX WITH ALCOHOL ABUSE. bp Vital Signs: 08:57 Resp 20; iw 08:59 BP 157 / 105; Pulse 119; Resp 18; Temp 98.3; Pulse Ox 100% on R/A; Weight 83.91 kg; iw Height 5 ft. 9 in. (175.26 cm); 09:55 BP 141 / 105; Pulse 98; Resp 18; Pulse Ox 100% ; bp 12:00 BP 146 / 110; Pulse 104; Resp 17; Pulse Ox 100% ; bp 13:55 BP 127 / 80; Pulse 100; Resp 16; Temp 98.5; Pulse Ox 100% ; bp 14:46 BP 123 / 71; Pulse 94; Resp 16; Pulse Ox 98% ; bp 08:59 Body Mass Index 27.32 (83.91 kg, 175.26 cm) iw ED Course: 08:44 Patient arrived in ED. as 08:44 Jacki Chavarria FNP-C is PHCP. snw 08:44 Raul Koenig MD is Attending Physician. snw 08:58 Triage completed. iw 09:00 Patient has correct armband on for positive identification. Bed in low position. Call bp light in reach. Side rails up X2. monitor car operator on. Pulse ox on. NIBP on. 09:12 EKG done, by ED staff, reviewed by Jacki CHAN. jb1 09:13 Dariel Mcleod, RN is Primary Nurse. bp 09:26 Inserted saline lock: 22 gauge in left wrist, using aseptic technique. bp 09:44 Chest Single View XRAY In Process Unspecified. EDMS 11:07 Missed attempt(s): 22 gauge in right antecubital area. jb1 12:11 IV discontinued. Inserted saline lock: 24 gauge in right ,using aseptic technique. bp ANKLE. Patient maintains SpO2 saturation greater than 95% on room air. 14:48 No provider procedures requiring assistance completed. IV discontinued, intact, bp bleeding controlled, No redness/swelling at site. Pressure dressing applied. 14:49 IV discontinued, intact, bleeding controlled, No redness/swelling at site. Pressure iw dressing applied. Administered Medications: 09:30 Drug: Phenergan 25 mg Route: IM; Site: left deltoid; bp 09:55 Follow up: Response: Nausea is decreased bp 10:26 Drug: Banana Bag - (NS 0.9% 1000 ml, foLIC Acid 1 mg, Thiamine 100 mg, Multivitamin 1 rb1 amp) Route: IV; Rate: 250 ml/hr; Site: left wrist; 11:28 Drug: ProTONIX 40 mg Route: IVP; Site: left wrist; rb1 12:09 Follow up: Response: No adverse reaction bp 11:28 Drug: Bentyl 20 mg Route: PO; rb1 12:09 Follow up: Response: No adverse reaction bp 11:45 Drug: Phenergan 6.25 mg Route: IVP; Site: left forearm; bp 12:39 Follow up: Response: Nausea is decreased bp 12:05 Drug: K-Lyte Effervescent Tablet 50 mEq Route: PO; bp 12:40 Follow up: Response: No adverse reaction bp 12:08 Not Given (Other Intervention Used): Potassium Chloride 20 mEq IV at calculated rate bp once; administer over 1-2 hours 12:08 Drug: NS 0.9% 1000 ml Route: IV; Rate: 1 bolus; Site: Other; bp 14:49 Follow up: IV Status: Completed infusion; IV Intake: 1000ml bp 12:45 Drug: Tylenol 1000 mg Route: PO; bp 13:53 Follow up: Response: No adverse reaction bp 13:53 Drug: Phenergan 6.25 mg Route: IVP; Site: Other; bp 13:56 Follow up: Response: Nausea is decreased bp Intake: 14:49 IV: 1000ml; Total: 1000ml. bp Outcome: 13:01 Discharge ordered by MD. mai 14:48 Discharged to home via wheelchair. bp 14:48 Condition: stable 14:48 Discharge instructions given to patient, Instructed on discharge instructions, follow up and referral plans. Demonstrated understanding of instructions, follow-up care. 14:49 Patient left the ED. bp Signatures: Dispatcher [employer] EDMS PoonRosalio jb1 Jacki Chavarria, PRODUCT MARKETING DIRECTOR-C PRODUCT MARKETING DIRECTOR-Phuong Kang Irene, BIN RN iw Yuridia Mei, BIN RN rb1 Dariel Mcleod RN RN bp Corrections: (The following items were deleted from the chart) 08:59 08:57 Chief complaint: Patient states: vomiting and diarrhea, can't eat since she was iw here last X 1 week ago iw
--- NOTE | 2019-08-10 13:02 | EDPHYS ---
Physician Documentation [facility] Name: Anali Coronado Age: 43 yrs Sex: Female : 1975 Arrival Date: 08/10/2019 Time: 08:44 Bed 6 Private MD: ED Physician Raul Koenig HPI: 08/09 09:09 This 43 yrs old Female presents to ER via Wheelchair with complaints of Chest snw Pain, Decreased Appetite, Vomiting. 09:09 Onset: The symptoms/episode began/occurred acutely. Associated signs and symptoms: snw Pertinent positives: N/V/D, weakness, states she was here for same one week ago, using ETOH since until yesterday, pt states she is so weak now that she is unable to get up to void at home. The patient has experienced similar episodes in the past. The patient has been recently seen by a physician: The patient has been recently seen at the [facility] Emergency Department, last week, for similar complaints was given a prescription for pain medications, was given a prescription for an antiemetic. 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 - Social history:: Smoking status: Patient reports the use of cigarette tobacco products, smokes one-half pack cigarettes per day. ROS: 09:09 Eyes: Negative for injury, pain, redness, and discharge, ENT: Negative for injury, snw pain, and discharge, Neck: Negative for injury, pain, and swelling, Cardiovascular: Negative for chest pain, palpitations, and edema, Respiratory: Negative for shortness of breath, cough, wheezing, and pleuritic chest pain. 09:09 Back: Negative for injury and pain, : Negative for injury, bleeding, discharge, and swelling, MS/Extremity: Negative for injury and deformity, Skin: Negative for injury, rash, and discoloration. 09:09 Constitutional: Positive for body aches, fatigue, malaise. 09:09 Abdomen/GI: Positive for nausea, vomiting, and diarrhea. 09:09 Neuro: Positive for weakness. Exam: 09:09 Head/Face: Normocephalic, atraumatic. Eyes: Pupils equal round and reactive to light, snw extra-ocular motions intact. Lids and lashes normal. Conjunctiva and sclera are non-icteric and not injected. Cornea within normal limits. Periorbital areas with no swelling, redness, or edema. 09:09 Neck: Trachea midline, no thyromegaly or masses palpated, and no cervical lymphadenopathy. Supple, full range of motion without nuchal rigidity, or vertebral point tenderness. No Meningismus. Chest/axilla: Normal chest wall appearance and motion. Nontender with no deformity. No lesions are appreciated. 09:09 Respiratory: Lungs have equal breath sounds bilaterally, clear to auscultation and percussion. No rales, rhonchi or wheezes noted. No increased work of breathing, no retractions or nasal flaring. 09:09 Back: No spinal tenderness. No costovertebral tenderness. Full range of motion. MS/ Extremity: Pulses equal, no cyanosis. Neurovascular intact. Full, normal range of motion. Neuro: Awake and alert, GCS 15, oriented to person, place, time, and situation. Cranial nerves II-XII grossly intact. Motor strength 5/5 in all extremities. Sensory grossly intact. Cerebellar exam normal. Normal gait. 09:09 Constitutional: The patient appears awake, frail, pale, uncomfortable. 09:09 ENT: Mouth: Oral mucosa: dry, Voice: is normal. 09:09 Cardiovascular: Rate: tachycardic, Rhythm: regular, Pulses: no pulse deficits are appreciated. 09:09 Abdomen/GI: Inspection: abdomen appears normal, Bowel sounds: diminished, Palpation: moderate abdominal tenderness, in all quadrants. 09:09 Skin: Appearance: Color: pale, Temperature: normal temperature, Moisture: dry. 09:09 Psych: Behavior/mood is anxious, Affect is flat, Oriented to person, place, time, pt states she relapsed in ETOH use in March after being sober x 1.5 years. 09:13 ECG was reviewed by the Attending Physician. snw Vital Signs: 08:57 Resp 20; iw 08:59 BP 157 / 105; Pulse 119; Resp 18; Temp 98.3; Pulse Ox 100% on R/A; Weight 83.91 kg; iw Height 5 ft. 9 in. (175.26 cm); 09:55 BP 141 / 105; Pulse 98; Resp 18; Pulse Ox 100% ; bp 12:00 BP 146 / 110; Pulse 104; Resp 17; Pulse Ox 100% ; bp 13:55 BP 127 / 80; Pulse 100; Resp 16; Temp 98.5; Pulse Ox 100% ; bp 14:46 BP 123 / 71; Pulse 94; Resp 16; Pulse Ox 98% ; bp 08:59 Body Mass Index 27.32 (83.91 kg, 175.26 cm) iw MDM: 09:15 Patient medically screened. snw 10:44 Data reviewed: vital signs, nurses notes. Data interpreted: Pulse oximetry: on room air snw is 100 %. Interpretation: normal. Counseling: I had a detailed discussion with the patient and/or guardian regarding: the historical points, exam findings, and any diagnostic results supporting the discharge/admit diagnosis, the presence of at least one elevated blood pressure reading (>120/80) during this emergency department visit, lab results, radiology results, the need for outpatient follow up. Response to treatment: no vomiting in ED. 08/09 09:08 Order name: Acetaminophen; Complete Time: 10:40 snw 08/09 09:08 Order name: Basic Metabolic Panel; Complete Time: 10:40 snw 08/09 09:08 Order name: CBC with Diff; Complete Time: 11:28 snw 08/09 09:08 Order name: ETOH Level; Complete Time: 10:40 snw 08/09 09:08 Order name: Hepatic Function; Complete Time: 10:40 snw 08/09 09:08 Order name: PT-INR; Complete Time: 10:14 snw 08/09 09:08 Order name: Ptt, Activated; Complete Time: 10:14 snw 08/09 09:08 Order name: Salicylate; Complete Time: 10:44 snw 08/09 09:08 Order name: Lipase; Complete Time: 10:40 snw 08/09 09:22 Order name: Chest Single View XRAY; Complete Time: 10:49 snw 08/09 11:22 Order name: CBC Smear Scan; Complete Time: 11:28 EDMS 08/09 09:08 Order name: FSBS; Complete Time: 10:41 snw 08/09 09:08 Order name: EKG; Complete Time: 09:08 snw 08/09 09:08 Order name: EKG - Nurse/Tech; Complete Time: 09:14 snw 08/09 09:08 Order name: IV Saline Lock; Complete Time: 09:25 w 08/09 09:08 Order name: Labs collected and sent; Complete Time: 09:43 snw EC:13 Rhythm is regular. QRS [place] is Normal. [place] interval is normal. QRS interval is normal. snw QT interval is normal. No Q waves. T waves are Normal. Clinical impression: NSR w/ Non-specific ST/T Changes. Administered Medications: 09:30 Drug: Phenergan 25 mg Route: IM; Site: left deltoid; bp 09:55 Follow up: Response: Nausea is decreased bp 10:26 Drug: Banana Bag - (NS 0.9% 1000 ml, foLIC Acid 1 mg, Thiamine 100 mg, Multivitamin 1 rb1 amp) Route: IV; Rate: 250 ml/hr; Site: left wrist; 11:28 Drug: ProTONIX 40 mg Route: IVP; Site: left wrist; rb1 12:09 Follow up: Response: No adverse reaction bp 11:28 Drug: Bentyl 20 mg Route: PO; rb1 12:09 Follow up: Response: No adverse reaction bp 11:45 Drug: Phenergan 6.25 mg Route: IVP; Site: left forearm; bp 12:39 Follow up: Response: Nausea is decreased bp 12:05 Drug: K-Lyte Effervescent Tablet 50 mEq Route: PO; bp 12:40 Follow up: Response: No adverse reaction bp 12:08 Not Given (Other Intervention Used): Potassium Chloride 20 mEq IV at calculated rate bp once; administer over 1-2 hours 12:08 Drug: NS 0.9% 1000 ml Route: IV; Rate: 1 bolus; Site: Other; bp 14:49 Follow up: IV Status: Completed infusion; IV Intake: 1000ml bp 12:45 Drug: Tylenol 1000 mg Route: PO; bp 13:53 Follow up: Response: No adverse reaction bp 13:53 Drug: Phenergan 6.25 mg Route: IVP; Site: Other; bp 13:56 Follow up: Response: Nausea is decreased bp Disposition: 19:02 Co-signature as Attending Physician, Raul Koenig MD., rn Disposition: 08/10/19 13:01 Discharged to Home. Impression: Alcohol abuse with intoxication, unspecified, Hypokalemia, Vomiting. - Condition is Stable. - Discharge Instructions: Alcohol Intoxication, Alcohol Use Disorder, Potassium Content of Foods, Nausea and Vomiting, Adult, Alcohol Abuse and Nutrition, What You Need to Know About Drinking and Driving, Teen. - Prescriptions for Vitamin 27- 0.8 mg Oral Tablet - take 1 tablet by ORAL route once daily; 30 tablet. Protonix 40 mg Oral Tablet - take 1 tablet by ORAL route once daily; 30 tablet. Phenergan 25 mg Rectal Suppository - insert 1 suppository by RECTAL route every 6 hours As needed; 12 suppository. - Medication Reconciliation Form, Thank You Letter, Antibiotic Education, Prescription Opioid Use form. - Follow up: Emergency Department; When: As needed; Reason: Worsening of condition. Follow up: Private Physician; When: 1 - 2 days; Reason: If symptoms return, Recheck today's complaints, Continuance of care. Signatures: Dispatcher [employer] EDMS Jacki Chavarria, SUJATHA-C OUTSIDE PLANT ENGINEER-Csnw Tamra Cabral RN RN iw Nieto, Roman, MD MD rn Barber, Rebecca, RN RN rb1 Dariel Mcleod RN RN bp Corrections: (The following items were deleted from the chart) 14:49 13:01 08/10/2019 13:01 Discharged to Home. Impression: Alcohol abuse with intoxication, bp unspecified; Hypokalemia; Vomiting. Condition is Stable. Discharge Instructions: Alcohol Intoxication, Alcohol Use Disorder, Potassium Content of Foods, Nausea and Vomiting, Adult, Alcohol Abuse and Nutrition, What You Need to Know About Drinking and Driving, Teen. Prescriptions for Vitamin 27-0.8 mg Oral Tablet - take 1 tablet by ORAL route once daily; 30 tablet, Protonix 40 mg Oral Tablet - take 1 tablet by ORAL route once daily; 30 tablet, Phenergan 25 mg Rectal Suppository - insert 1 suppository by RECTAL route every 6 hours As needed; 12 suppository. and Forms are Prescription Opioid Use, Medication Reconciliation Form, Thank You Letter, Antibiotic Education. Follow up: Emergency Department; When: As needed; Reason: Worsening of condition. Follow up: Private Physician; When: 1 - 2 days; Reason: If symptoms return, Recheck today's complaints, Continuance of care. snw
[2019-08-10 15:10] VITALS: TEMP 98.5
[2019-08-10 15:11] VITALS: BP 123/71; O2SAT 98
--- NOTE | 2019-08-11 07:12 | EKG ---
Test Date: 2019-08-10 Test Time: 09:10:41 Dyslexia Teacher: ANA LILIA MEASUREMENT RESULTS: Intervals: Rate: 86 MO: 136 QRSD: 86 QT: 380 QTc: 454 [place]: P: 44 MO: 136 QRS: 1 T: 31 INTERPRETIVE STATEMENTS: Normal sinus rhythm Minimal voltage criteria for LVH, may be normal variant Borderline ECG Compared to ECG 08/05/2019 19:18:49 Left ventricular hypertrophy now present Electronically Signed On 08-11-19 07:11:13 CDT by Arpan Lewis
== END 2019-08-10 14:49 | disposition home or self-care (01) ==
LOC: ER 08:43
DX: E87.6 Hypokalemia (principal); F10.229 Alcohol dependence with intoxication, unspecified; F17.210 Nicotine dependence, cigarettes, uncomplicated; Z88.1 Allergy status to other antibiotic agents
CPT/HCPCS: 36415; 71045; 80048; 80076; 80320; 80329; 83690; 85025; 85610; 85730; 93005; 96372; 99285; C9113; J2550; J3411; J7030